=== PATIENT | male | born 1940 | race Caucasian/White ===

== ENCOUNTER → 2017-05-19 | Outpatient (CLI) | payer MEDICARE, OTHER ==
[~2017-05-19] MED LIST: ELIQUIS5 MG PO; EZET10 PO; FLUSAL1005 INH; FOLI1 PO; GABA300 PO; HYDR1TAB94 PO; Hydrocodone-Ap1 EA23 PO; LEVSOD75 PO; LOSA25 PO; TAMS.4ER PO; TIOT18 INH; ZOLP5; ZOLP5 PO
[2017-05-19 19:09] LABS: Alanine Aminotransfer (ALT/SGP 24 U/L (12-78); Albumin, Blood 3.3 g/dL (3.4-5.0); Albumin/Globulin Ratio 0.8 (0.8-1.8); Alk Phos 110 U/L (50-136); Anion Gap 7 mmol/L (6-16); Aspartate Aminotrans (AST/SGOT 22 U/L (12-37); Bilirubin, Total 0.5 mg/dL (0.1-1.0); Blood Urea Nitrogen 17 mg/dL (8-24); Bun/Creatinine Ratio 17.6 (12.0-20.0); CO2, Blood 26 mmol/L (21-32); Chloride, Blood 109 mmol/L (98-108); Creatinine, Blood 0.97 mg/dL (0.60-1.20); Globulin, Blood 3.9 g/dL (2.2-4.0); Glomerular Filtration Rate >60 (60-); Glucose, Blood 74 mg/dL (70-99); Potassium, Blood 5.7 mmol/L (3.5-5.5); Sodium, Blood 142 mmol/L (136-145); Total Protein, Blood 7.2 g/dL (6.4-8.2)
== END | disposition home or self-care (01) ==
LOC: LAB 14:00
PROVIDERS: Internal Medicine Hematology & Oncology
DX: C34.90 Malignant neoplasm of unspecified part of unspecified bronchus or lung (principal)
CPT/HCPCS: 80053

== ENCOUNTER → 2017-06-16 | Outpatient (CLI) | payer MEDICARE, OTHER ==
[2017-06-16 20:04] LABS: Alanine Aminotransfer (ALT/SGP 33 U/L (12-78); Albumin, Blood 3.4 g/dL (3.4-5.0); Albumin/Globulin Ratio 0.8 (0.8-1.8); Alk Phos 102 U/L (50-136); Anion Gap 11 mmol/L (6-16); Aspartate Aminotrans (AST/SGOT 27 U/L (12-37); Bilirubin, Total 0.4 mg/dL (0.1-1.0); Blood Urea Nitrogen 16 mg/dL (8-24); Bun/Creatinine Ratio 15.5 (12.0-20.0); CO2, Blood 24 mmol/L (21-32); Calcium, Blood 8.9 mg/dL (8.5-10.1); Chloride, Blood 107 mmol/L (98-108); Creatinine, Blood 1.03 mg/dL (0.60-1.20); Free Thyroxine 1.08 ng/dL (0.70-1.60); Globulin, Blood 4.2 g/dL (2.2-4.0); Glomerular Filtration Rate >60 (60-); Glucose, Blood 84 mg/dL (70-99); Potassium, Blood 5.6 mmol/L (3.5-5.5); Sodium, Blood 142 mmol/L (136-145); Total Protein, Blood 7.6 g/dL (6.4-8.2)
== END ==
LOC: LAB SHORT 11:00
PROVIDERS: Internal Medicine Hematology & Oncology
DX: C34.90 Malignant neoplasm of unspecified part of unspecified bronchus or lung (principal); D51.8 Other vitamin B12 deficiency anemias; R53.81 Other malaise; R53.83 Other fatigue
CPT/HCPCS: 80053; 82607; 82746; 84439; 84443

== ENCOUNTER 2017-10-25 05:52 | Day surgery (SDC) | payer MEDICARE, OTHER ==
[~2017-10-25] VITALS: Ht 175.3 cm; Wt 99.0 kg
[~2017-10-25 05:52] MED LIST changes: -HYDR1TAB94 PO
[2017-10-25] MEDS ORDERED: HYDR1TAB94 PO (06:33)
== END 2017-10-25 18:55 | disposition home or self-care (01) ==
LOC: MHTC 05:52 → ICUE 15:38 → MHTC 15:39 → ICUE 18:55
PROC: B42 Imaging, Lower Arteries, Computerized Tomography (CT Scan) (ICD-10-PCS; principal; 2017-10-25)
DX: I72.3 Aneurysm of iliac artery (principal); I70.221 Atherosclerosis of native arteries of extremities with rest pain, right leg; K55.1 Chronic vascular disorders of intestine
CPT/HCPCS: 36140; 75635; 75710; 75774; 85347; 96374; 99152; 99153; C1769; J1644; J2060; J2250; J2720; J3010; J7030; J7040; Q9967

== ENCOUNTER 2019-01-22 06:18 | Observation (INO) | payer OTHER, MEDICARE ==
[~2019-01-22] VITALS: Ht 175.3 cm; Wt 107.4 kg
[~2019-01-22 06:18] MED LIST changes: +HYDR1TAB94 PO
[2019-01-22 06:56] LABS: Source, Urine Voided
[2019-01-22 06:57] LABS: BASOPHILS ABSOLUTE AUTO 0.05 K/mm3 (0.00-0.23); BASOPHILS PERCENT AUTO 0 % (0-2); EOSINOPHILS ABSOLUTE AUTO 0.01 K/mm3 (0.00-0.68); EOSINOPHILS PERCENT AUTO 0 % (0-6); Hematocrit 44.1 % (37.0-53.0); Hemoglobin 14.7 g/dL (13.5-17.5); IMMATURE GRAN ABSOLUTE AUTO 0.24 K/mm3 (0.00-0.10); IMMATURE GRAN PERCENT AUTO 1 % (0-1); LYMPHOCYTES PERCENT AUTO 4 % (21-46); MONOCYTES ABSOLUTE AUTO 0.75 K/mm3 (0.16-1.47); MONOCYTES PERCENT AUTO 4 % (4-13); Mean Corpuscular HGB 31.6 pg (26.0-34.0); Mean Corpuscular HGB Conc 33.3 g/dL (31.5-36.5); Mean Corpuscular Volume 95 fL (80-100); Mean Platelet Volume 11.5 fL (9.1-12.4); NEUTROPHILS PERCENT AUTO 90 % (41-73); Platelet Count 156 K/mm3 (150-400); RDW Coefficient Variation 15.8 % (11.7-14.2); RDW Standard Deviation 55.2 fL (35.1-46.3); Red Blood Cell Count 4.65 M/mm3 (4.30-5.90); White Blood Cell Count 18.05 K/mm3 (4.00-11.30)
[2019-01-22 07:04] LABS: Bilirubin, Urine Neg (Neg); Blood, Urine 4+ (Neg); Glucose Qualitative, Urine Neg (Neg); Ketones, Urine 1+ (Neg); Leukocyte Esterase, Urine 3+ (Neg); Nitrite, Urine Neg (Neg); Protein, Urine 2+ (Neg); Urobilinogen, Urine NORM (Normal)
[2019-01-22 07:11] LABS: Appearance, Urine Clear (Clear); Color, Urine Yellow (P-Yellow)
[2019-01-22 07:13] LABS: Bacteria Many /hpf; Red Blood Cells, Urine 0-2 /hpf (0-2); Squamous Epithelial Cells Few /hpf (Few); White Blood Cells, Urine TNTC /hpf (0-5)
[2019-01-22 07:20] LABS: Albumin, Blood 2.6 g/dL (3.4-5.0); Albumin/Globulin Ratio 0.6 (0.8-1.8); Bilirubin, Total 0.6 mg/dL (0.1-1.0); Calcium, Blood 8.2 mg/dL (8.5-10.1); Creatinine, Blood 1.72 mg/dL (0.60-1.20); Globulin, Blood 4.5 g/dL (2.2-4.0); Magnesium, Blood 2.3 mg/dL (1.6-2.4); Potassium, Blood 4.3 mmol/L (3.5-5.5); Total Protein, Blood 7.1 g/dL (6.4-8.2)
[2019-01-22 07:23] LABS: Thyroid Stimulating Hormone 2.8 uIU/mL (0.360-4.800)
[2019-01-22 07:29] LABS: Free Thyroxine 1.37 ng/dL (0.70-1.60)
[2019-01-22] MEDS ORDERED: ATOR40TA PO (07:44)
[2019-01-22] MEDS ORDERED: CLOP75 PO (07:45)
[2019-01-22] MEDS ORDERED: SERT25 PO (07:46)
[2019-01-22] MEDS ORDERED: Motion Sickness25 M2 PO (12:08)
[2019-01-22] MEDS ORDERED: FLUTICASONE-SA1 EAC4 INH (12:10)
--- NOTE | 2019-01-22 13:00 | NUR ---
PT ARRIVED TO ROOM VIA STRETCHER AND ABLE TO MOVED HIMSELF TO BED WITH MOD ASSISTANCE WITH SLIDING. SOB WITH ANY ACTIVITY BUT DENIES FEELING SOB. NEPHEW CAME WITH HIM AND NEPHEWS . SETTLED IN TO BED AND MD IN IMMEDIATELY AFTER TO ASSESS HIM.
--- NOTE | 2019-01-22 18:35 | NUR ---
SHIFT SUMMARY PT STATING HE NEEDS TO URINATE FREQUENTLY BUT DENIES PAIN WITH URINATION. AT BEDSIDE THIS EVENING AND BROUGHT HIS DENTURES. PT UP TO CHAIR FOR SUPPER FROM P.T. FEELS BETTER THAN WHEN HE FIRST ARRIVED.
[2019-01-23 04:53] LABS: Hematocrit 45.7 % (37.0-53.0); Mean Corpuscular HGB 31.2 pg (26.0-34.0); Mean Corpuscular HGB Conc 32.8 g/dL (31.5-36.5); Mean Corpuscular Volume 95 fL (80-100); Mean Platelet Volume 11.5 fL (9.1-12.4); Platelet Count 173 K/mm3 (150-400); RDW Coefficient Variation 15.9 % (11.7-14.2); RDW Standard Deviation 55.4 fL (35.1-46.3); Red Blood Cell Count 4.81 M/mm3 (4.30-5.90)
--- NOTE | 2019-01-23 05:10 | NUR ---
THERAPEUTIC CASE MANAGER SUMMARY PT AAOX4 AND PLEASANT. STANDBY ASSIST WITH FWW. PT HAD SLIGHT TEMP AT START OF SHIFT. PT ALSO HAD BEEN FREQUENTLY VOIDING SMALL AMOUNTS OF URINE. PT TAKES FLOMAX AND HAS A HX OF RETENTION. BLADDER SCAN SHOWED 740 ML. SPOKE WITH CRISTOPHER FRANCES RADIO INTERFERENCE EXPERT REGARDING THIS, RECIEVED ORDER TO STRAIGHT CATH AND TO GIVE PT HIS NORMAL DOSE OF FLOMAX. ALSO RECIEVED ORDER FOR TYLENOL FOR FEVER. DURING ROUNDING LATER IN THE SHIFT PT WAS NOTED TO BE VERY DIAPHORETIC. PT WAS STILL AAOX4 AND DENIED NEW SYMPTOMS. PT ALSO HAD A LOW TEMPERATURE OF 93 DEGREES ORALLY. CHECKED CBG WHICH WAS 150'S. VSS AT THIS TIME. PT STATES THAT IT IS NORMAL FOR HIM TO SWEAT WHILE HE IS SLEEPING AND STATES HE OFTEN HAS TO CHANGE HIS LINENS WHEN HE WAKES UP. INCREASED TEMP IN ROOM AND GAVE PT WARM BLANKET. RECHECKED TEMP WAS 94.3 DEGREES. DID A FULL LINEN CHANGE AND CHANGED PT'S GOWN. MADE SURE PT WAS COMPLETELY DRY AND GAVE PT ADDITIONAL WARM BLANKETS. WILL RECHECK TEMPERATURE. PT DENIES PAIN, N/V, SOB. PT STATES HE'S FEELING A BIT BETTER THAN WHEN HE CAME IN. VSS, WILL CONTINUE TO MONITOR.
[2019-01-23 05:12] LABS: Alanine Aminotransfer (ALT/SGP 26 U/L (12-78); Albumin, Blood 2.5 g/dL (3.4-5.0); Albumin/Globulin Ratio 0.5 (0.8-1.8); Alk Phos 100 U/L (50-136); Anion Gap 4 mmol/L (6-16); Aspartate Aminotrans (AST/SGOT 41 U/L (12-37); Bilirubin, Total 0.3 mg/dL (0.1-1.0); Blood Urea Nitrogen 33 mg/dL (8-24); Bun/Creatinine Ratio 29.7 (12.0-20.0); CO2, Blood 23 mmol/L (21-32); Calcium, Blood 8.3 mg/dL (8.5-10.1); Chloride, Blood 115 mmol/L (98-108); Creatinine, Blood 1.11 mg/dL (0.60-1.20); Globulin, Blood 4.9 g/dL (2.2-4.0); Glomerular Filtration Rate >60 (60-); Glucose, Blood 169 mg/dL (70-99); Potassium, Blood 4.8 mmol/L (3.5-5.5); Sodium, Blood 142 mmol/L (136-145); Total Protein, Blood 7.4 g/dL (6.4-8.2)
[2019-01-23] MEDS ORDERED: LEVFLO500 PO (11:34)
[2019-01-23] MEDS ORDERED: Vsl#3 Capsule1 EACH PO (11:35)
--- NOTE | 2019-01-23 14:45 | NUR ---
DISCHARGE INSTRUCTIONS COMPLETED AND DISCUSSED WITH PT EXPRESSING UNDERSTANDING. SCRIPTS FAXED TO [facility]. TO [facility] VIA W/C AFTER HERE TO PICK HIM UP.
== END 2019-01-23 14:29 | disposition home or self-care (01) ==
LOC: ER 06:18 → ERHOLD 06:19 → MEDS 06:19 → ERHOLD 07:47 → ER 07:47 → MEDS 12:48 → ERHOLD 12:48 → ENPENDDIS 01-23 11:00 → MEDS 01-23 14:29
PROVIDERS: Emergency Medicine; ADMIT Internal Medicine
DX: A41.9 Sepsis, unspecified organism (principal); N39.0 Urinary tract infection, site not specified; N17.9 Acute kidney failure, unspecified; E86.0 Dehydration; I25.10 Atherosclerotic heart disease of native coronary artery without angina pectoris; F17.210 Nicotine dependence, cigarettes, uncomplicated; J44.1 Chronic obstructive pulmonary disease with (acute) exacerbation; Z79.02 Long term (current) use of antithrombotics/antiplatelets; Z79.899 Other long term (current) drug therapy; Z88.1 Allergy status to other antibiotic agents; Z88.8 Allergy status to other drugs, medicaments and biological substances
CPT/HCPCS: 36415; 51701; 70450; 71046; 80053; 81001; 82947; 83605; 83735; 83880; 84439; 84443; 85025; 85027; 87040; 87077; 87086; 87186; 93005; 93010; 94640; 94760; 96361; 96365; 96366; 97116; 97162; 97166; 97530; 99285-25; A9270; G0378; J0696; J1650; J2930; J7030; J7050

== ENCOUNTER 2020-06-10 20:13 | Emergency (ER) | payer OTHER, MEDICARE ==
[~2020-06-10] VITALS: Ht 175.3 cm; Wt 106.6 kg
[~2020-06-10 20:13] MED LIST changes: +ATOR40TA PO; +CLOP75 PO; +FLUTICASONE-SA1 EAC4 INH; +LEVFLO500 PO; +Motion Sickness25 M2 PO; +SERT25 PO; +Vsl#3 Capsule1 EACH PO
[2020-06-10 20:55] LABS: BASOPHILS ABSOLUTE AUTO 0.07 K/mm3 (0.00-0.23); BASOPHILS PERCENT AUTO 1 % (0-2); EOSINOPHILS ABSOLUTE AUTO 0.09 K/mm3 (0.00-0.68); EOSINOPHILS PERCENT AUTO 1 % (0-6); Hematocrit 54.6 % (37.0-53.0); Hemoglobin 17.6 g/dL (13.5-17.5); IMMATURE GRAN ABSOLUTE AUTO 0.05 K/mm3 (0.00-0.10); IMMATURE GRAN PERCENT AUTO 1 % (0-1); LYMPHOCYTES ABSOLUTE AUTO 2.02 K/mm3 (0.84-5.20); LYMPHOCYTES PERCENT AUTO 20 % (21-46); MONOCYTES PERCENT AUTO 6 % (4-13); Mean Corpuscular HGB 30.8 pg (26.0-34.0); Mean Corpuscular HGB Conc 32.2 g/dL (31.5-36.5); Mean Corpuscular Volume 96 fL (80-100); Mean Platelet Volume 11.1 fL (9.1-12.4); NEUTROPHILS PERCENT AUTO 72 % (41-73); Platelet Count 179 K/mm3 (150-400); RDW Standard Deviation 53.2 fL (35.1-46.3); Red Blood Cell Count 5.71 M/mm3 (4.30-5.90); White Blood Cell Count 10.13 K/mm3 (4.00-11.30)
[2020-06-10 21:15] LABS: Anion Gap 5 mmol/L (6-16); Blood Urea Nitrogen 13 mg/dL (8-24); CO2, Blood 25 mmol/L (21-32); Calcium, Blood 8.6 mg/dL (8.5-10.1); Chloride, Blood 109 mmol/L (98-108); Creatinine, Blood 0.93 mg/dL (0.60-1.20); Glomerular Filtration Rate >60 (60-); Glucose, Blood 114 mg/dL (70-99); Potassium, Blood 4.1 mmol/L (3.5-5.5); Sodium, Blood 139 mmol/L (136-145)
== END 2020-06-10 22:39 | disposition home or self-care (01) ==
LOC: ER 20:13
PROVIDERS: Student in an Organized Health Care Education/Training Program
DX: R42 Dizziness and giddiness (principal); R11.0 Nausea; I25.2 Old myocardial infarction; I25.10 Atherosclerotic heart disease of native coronary artery without angina pectoris; F17.200 Nicotine dependence, unspecified, uncomplicated; Z88.1 Allergy status to other antibiotic agents; Z88.8 Allergy status to other drugs, medicaments and biological substances; Z79.02 Long term (current) use of antithrombotics/antiplatelets; Z79.899 Other long term (current) drug therapy
CPT/HCPCS: 36415; 80048; 85025; 93005; 93010; 99284-25

== ENCOUNTER 2022-09-13 22:14 | Inpatient (IN) | payer OTHER ==
[~2022-09-13] VITALS: Ht 175.3 cm; Wt 76.2 kg
[~2022-09-13 22:14] MED LIST changes: +ASCO500 PO; +B12-FOLIC ACID1 EACH PO; +FLUT1DIS2; +FLUTICASONE-SA1 EAC9; +LEVOFLOXACIN500 M5; +VITAMIN D325 MC3 PO
[2022-09-13 22:50] LABS: BASOPHILS ABSOLUTE AUTO 0.04 K/mm3 (0.00-0.23); BASOPHILS PERCENT AUTO 0 % (0-2); EOSINOPHILS ABSOLUTE AUTO 0.01 K/mm3 (0.00-0.68); EOSINOPHILS PERCENT AUTO 0 % (0-6); Hematocrit 54.1 % (37.0-53.0); IMMATURE GRAN ABSOLUTE AUTO 0.03 K/mm3 (0.00-0.10); IMMATURE GRAN PERCENT AUTO 0 % (0-1); LYMPHOCYTES PERCENT AUTO 17 % (21-46); MONOCYTES ABSOLUTE AUTO 0.61 K/mm3 (0.16-1.47); MONOCYTES PERCENT AUTO 5 % (4-13); Mean Corpuscular HGB 31.6 pg (26.0-34.0); Mean Corpuscular HGB Conc 33.3 g/dL (31.5-36.5); Mean Corpuscular Volume 95 fL (80-100); Mean Platelet Volume 10.4 fL (9.1-12.4); NEUTROPHILS ABSOLUTE AUTO 8.92 K/mm3 (1.96-9.15); NEUTROPHILS PERCENT AUTO 77 % (41-73); Platelet Count 206 K/mm3 (150-400); RDW Coefficient Variation 14.4 % (11.7-14.2); RDW Standard Deviation 50.8 fL (35.1-46.3); Red Blood Cell Count 5.69 M/mm3 (4.30-5.90); White Blood Cell Count 11.61 K/mm3 (4.00-11.30)
[2022-09-13 23:03] LABS: Albumin, Blood 2.8 g/dL (3.4-5.0); Albumin/Globulin Ratio 0.7 (0.8-1.8); Bilirubin, Total 0.7 mg/dL (0.1-1.0); Bun/Creatinine Ratio 26.1 (12.0-20.0); Calcium, Blood 8.4 mg/dL (8.5-10.1); Creatinine, Blood 0.73 mg/dL (0.60-1.20); Globulin, Blood 4.2 g/dL (2.2-4.0); Magnesium, Blood 2.3 mg/dL (1.6-2.4); Potassium, Blood 3.5 mmol/L (3.5-5.5)
[2022-09-13 23:56] LABS: Adenovirus Not Detected (NOT DETECT); Bordetella pertussis Not Detected (NOT DETECT); Chlamydophila pneumoniae Not Detected (NOT DETECT); Coronavirus 229E Not Detected (NOT DETECT); Coronavirus HKU1 Not Detected (NOT DETECT); Coronavirus NL63 Not Detected (NOT DETECT); Coronavirus OC43 Not Detected (NOT DETECT); Human Metapneumovirus Not Detected (NOT DETECT); Human Rhinovirus/Enterovirus Not Detected (NOT DETECT); Influenza A/2009-H1 Not Detected (NOT DETECT); Influenza A/H1 Not Detected (NOT DETECT); Influenza A/H3 Not Detected (NOT DETECT); Influenza B Not Detected (NOT DETECT); Mycoplasma pneumoniae Not Detected (NOT DETECT); Parainfluenza Virus 1 Not Detected (NOT DETECT); Parainfluenza Virus 2 Not Detected (NOT DETECT); Parainfluenza Virus 3 Not Detected (NOT DETECT); Parainfluenza Virus 4 Not Detected (NOT DETECT); Respiratory Syncytial Virus Not Detected (NOT DETECT); SARS-Cov-2 (COVID-19), BioFire Not Detected (NOT DETECT)
[2022-09-14 03:13] VITALS: BP 149/70
--- NOTE | 2022-09-14 03:40 | NUR ---
PT ARRIVED ON UNIT AT 0250. DENIES PAIN, DISCOMFORT. SATTING WELL ON 15 L O2 VIA SIMPLE MASK. AOX4. PLEASANT AND COOPERATIVE WITH CARE. ADMISSION HISTORY AND ASSESSMENT COMPLETED. SCHEDULED MEDICATIONS TO BE ADMINISTERED ON SCHEDULE. DIET ORDER IS UNCLEAR DUE TO NO ORDER YET INPUT. 1 PERSON TRANSFER PER ED REPORT. IV IN RFA, SALINE LOCKED AT THIS TIME. DAUGHTER ACCOMPANIED PATIENT FROM ED BUT LEFT VERY QUICKLY AFTER ARRIVING ON FLOOR. PT USES CALL LIGHT APPROPRIATELY. BED LOCKED IN LOWEST POSITION. CALL LIGHT LEFT WITHIN REACH.
[2022-09-14 08:20] VITALS: BP 159/72
--- NOTE | 2022-09-14 11:30 | NUR ---
AM RN NOTE MR WILLAMS IS ON 12 L FACE MASK 02, CONTINUOUS PULSE OXIMETER ORDERED. DENIES CHEST PAIN. POOR APPETITE. UOP 150CC JULIANA URINE, STARTED ON IVF. EMESIS X 1 - GIVEN PO COMPAZINE AND HE SAID HE'S FEELING A LITTLE BETTER. BED LOW, CALL LIGHT IN REACH.
[2022-09-14 15:13] VITALS: BP 152/73
--- NOTE | 2022-09-14 15:38 | NUR ---
SHIFT SUMMARY MR WILLAMS SAID NAUSEA HAS GONE. POOR FOOD INTAKE BUT TOLERATING FLUIDS. BETTER UOP SINCE STARTING IVF. TIRED. PULSE OX 96% ON 8L OXIMISER SO DECREASED TO 7L. REPORT TO ERIC MUELLER RN. PT COMFORTABLE RESTING IN BED AT THIS TIME. BED LOW, CALL LIGHT IN REACH.
--- NOTE | 2022-09-14 17:11 | NUR ---
SHIFT SUMMARY RECEIVED REPORT ON PT AT 1530, ASSUMED CARE. NO ACUTE CHANGES NOTED, PT ALERT AND ORIENTED, CALLS APPROPRIATELY. PT AT 7L O2, NO SIGNS OF DISTRESS. PT X 1 ASSIST. NS INFUSING @ 125. WILL CONTINUE TO MONITOR. CALL LIGHT WITHIN REACH.
[2022-09-14 21:03] VITALS: BP 154/71
[2022-09-14 23:11] LABS: Source, Urine Voided
[2022-09-14 23:41] LABS: Bilirubin, Urine Neg (Neg); Blood, Urine Neg (Neg); Glucose Qualitative, Urine Neg (Neg); Ketones, Urine 3+ (Neg); Leukocyte Esterase, Urine Neg (Neg); Nitrite, Urine Neg (Neg); Protein, Urine 3+ (Neg); Urobilinogen, Urine NORM (Normal)
[2022-09-14 23:54] LABS: Appearance, Urine Clear (Clear); Color, Urine Yellow (P-Yellow)
[2022-09-14 23:55] LABS: Red Blood Cells, Urine 0-2 /hpf (0-2); White Blood Cells, Urine 0-2 /hpf (0-5)
[2022-09-14 23:56] LABS: Bacteria Few /hpf; Mucus Light (0-Heavy); Squamous Epithelial Cells Few /hpf (Few)
[2022-09-15 06:02] LABS: BASOPHILS ABSOLUTE AUTO 0.01 K/mm3 (0.00-0.23); BASOPHILS PERCENT AUTO 0 % (0-2); EOSINOPHILS PERCENT AUTO 0 % (0-6); Hematocrit 50.9 % (37.0-53.0); Hemoglobin 17.2 g/dL (13.5-17.5); IMMATURE GRAN ABSOLUTE AUTO 0.03 K/mm3 (0.00-0.10); IMMATURE GRAN PERCENT AUTO 0 % (0-1); LYMPHOCYTES ABSOLUTE AUTO 0.55 K/mm3 (0.84-5.20); LYMPHOCYTES PERCENT AUTO 6 % (21-46); MONOCYTES PERCENT AUTO 2 % (4-13); Mean Corpuscular HGB 32.3 pg (26.0-34.0); Mean Corpuscular HGB Conc 33.8 g/dL (31.5-36.5); Mean Corpuscular Volume 96 fL (80-100); Mean Platelet Volume 11.2 fL (9.1-12.4); NEUTROPHILS ABSOLUTE AUTO 8.78 K/mm3 (1.96-9.15); NEUTROPHILS PERCENT AUTO 92 % (41-73); Platelet Count 208 K/mm3 (150-400); RDW Coefficient Variation 14.5 % (11.7-14.2); RDW Standard Deviation 50.5 fL (35.1-46.3); Red Blood Cell Count 5.32 M/mm3 (4.30-5.90); White Blood Cell Count 9.57 K/mm3 (4.00-11.30)
--- NOTE | 2022-09-15 06:32 | NUR ---
GRAIN SPOUTER SUMMARY PT A/OX4. WITH SOME CONFUSION AND FORGETUFLLNESS. PT ON 6L W/MASK T/O THE NIGHT. PT OCCASIONALLY PULLING MASK OFF AND HAVING SHARP DESATS DOWN INTO THE LOW 70'S. PT C/O N&V AT THE BEGINNING OF SHIFT AND INTERMITTANTLY T/O THE NIGHT. 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 CALL TO PARTS PRODUCT ANALYST; NEW ORDER FOR IV ZOFRAN, FLUTTER THERAPY, AND VANCYO CONSULT/VANCO PER PHARMACY. PT RCVD FIRST DOSE OF VANCYO AND TOLERATED WELL. PT EXPRESSING DESIRE TO SPEAK TO THE DR AND "GET OUTTA HERE" TALKED WITH PT ABOUT CURRENT ILLNESS AND NEED FOR MEDICAL INTERVENTION. PT ABLE TO MAKE NEEDS KNOWN; CALL LIGHT ACCESSIBLE.
[2022-09-15 06:49] LABS: Albumin, Blood 2.5 g/dL (3.4-5.0); Albumin/Globulin Ratio 0.7 (0.8-1.8); Bilirubin, Total 0.7 mg/dL (0.1-1.0); Bun/Creatinine Ratio 27.7 (12.0-20.0); Calcium, Blood 7.9 mg/dL (8.5-10.1); Creatinine, Blood 0.79 mg/dL (0.60-1.20); Globulin, Blood 3.8 g/dL (2.2-4.0); Magnesium, Blood 2.4 mg/dL (1.6-2.4); Potassium, Blood 3.5 mmol/L (3.5-5.5); Total Protein, Blood 6.3 g/dL (6.4-8.2)
[2022-09-15 09:13] VITALS: BP 168/77
--- NOTE | 2022-09-15 10:17 | NUR ---
MD CALL MR WILLAMS TOOK PO PHENERGAN THIS AM BEFORE BREAKFAST AND MEDS, BUT DID VOMIT THIS AM. DID NOT TOLERATE BREAKFAST. DR SU CALLED TO NOTIFY - AZYTHROMYACIN DISCONTINUED AND LORAZEPAM ORDERED. OK TO GIVE IV ZOFRAN.
[2022-09-15 12:09] VITALS: BP 148/67
--- NOTE | 2022-09-15 16:46 | NUR ---
SHIFT SUMMARY MR WILLAMS HAS POOR INTAKE TODAY, TOLERATING WATER PO BUT NOT FOOD. PO PHENERGAN AND IV ZOFRAN DID NOT HELP. GIVEN LOW DOSE ATIVAN IV AND HE HAS BEEN RESTING. HE HAD TELEPHONE CALL WITH GI PHYSICIAN WITH DAUGHTER PRESENT. DAUGHTER SAID THAT HE SHOULD BE OFF ELOQUIS FOR 5 DAYS POST COLONOSCOPY THEN GO BACK ON IT, THAT THE SCHEDULED FACIAL SURGERY ON 09/26 WILL NOT BE DONE AND THAT HE WILL HAVE BOWEL RESECTION SCHEDULED AFTER HE IS RELEASED FROM [facility]. ON 8L OXIMISER WITH CONTINUOUS PULSE OX 90-91%. UOP LOW VOLUME, DARKER IN COLOR. BED LOW, CALL LIGHT IN REACH.
--- NOTE | 2022-09-15 18:22 | NUR ---
ADDN MESSAGE LEFT FOR BRAZING MACHINE OPERATOR AUTOMATIC REGARDING POOR PO INTAKE.
[2022-09-15 19:14] VITALS: BP 156/69
[2022-09-16 03:10] VITALS: BP 162/68
[2022-09-16 03:49] VITALS: BP 149/69
[2022-09-16 05:32] LABS: BASOPHILS ABSOLUTE AUTO 0.02 K/mm3 (0.00-0.23); BASOPHILS PERCENT AUTO 0 % (0-2); EOSINOPHILS PERCENT AUTO 0 % (0-6); Hematocrit 49.8 % (37.0-53.0); Hemoglobin 16.6 g/dL (13.5-17.5); IMMATURE GRAN ABSOLUTE AUTO 0.05 K/mm3 (0.00-0.10); IMMATURE GRAN PERCENT AUTO 0 % (0-1); LYMPHOCYTES ABSOLUTE AUTO 0.53 K/mm3 (0.84-5.20); LYMPHOCYTES PERCENT AUTO 4 % (21-46); MONOCYTES ABSOLUTE AUTO 0.43 K/mm3 (0.16-1.47); MONOCYTES PERCENT AUTO 3 % (4-13); Mean Corpuscular HGB 31.9 pg (26.0-34.0); Mean Corpuscular HGB Conc 33.3 g/dL (31.5-36.5); Mean Corpuscular Volume 96 fL (80-100); Mean Platelet Volume 10.6 fL (9.1-12.4); NEUTROPHILS ABSOLUTE AUTO 13.46 K/mm3 (1.96-9.15); NEUTROPHILS PERCENT AUTO 93 % (41-73); Platelet Count 200 K/mm3 (150-400); RDW Coefficient Variation 14.2 % (11.7-14.2); RDW Standard Deviation 50.7 fL (35.1-46.3); White Blood Cell Count 14.49 K/mm3 (4.00-11.30)
--- NOTE | 2022-09-16 05:35 | NUR ---
PATIENT REMAINS ALERT AND ORIENTED X4, STAND BY ASSIST TO MANAGE LINES, SOME INCONTINENCE, GOOD U/O, IV REPLACED AND INFUSING. SOME EDEMA NOTED TO BUE AND BLE, LUNGS ARE COARSE IN ALL AREAS WITH A WET WEAK PRODUCTIVE COUGH. HTN, OTHERWISE VSS. WILL CONT TO MONITOR.
[2022-09-16 06:03] LABS: Calcium, Blood 7.6 mg/dL (8.5-10.1); Creatinine, Blood 0.83 mg/dL (0.60-1.20); Potassium, Blood 3.8 mmol/L (3.5-5.5)
[2022-09-16 07:51] VITALS: BP 170/74
[2022-09-16 16:59] VITALS: BP 157/66
--- NOTE | 2022-09-16 17:29 | NUR ---
SHIFT SUMMARY PTN WITH ACUTE RESP FAILURE, HYPOXIA AND COPD EXEC, WITH HX CA. NAUSEA FIRST OF SHIFT, TREATED PER EMAR, RESTING REST OF DAY. NOT INTERESTED IN SITTING UP IN CHAIR. O2 DROPS DOWN INTO 80'S IF NOT ON CORRECTLY, PREFERS MASK. SATS WITH MASK AND AT REST 93-94% FOR SHIFT, 11L O2. PTN REPORTED ONCOLOGIST WANTED TO HOLD PLAVIX, ORDER D/C'D. REGLAN ORDERED STARTING [address] OF CHEST, ABD, AND PELVIS DONE TODAY. CONTINIUE PLAN OF CARE.
[2022-09-16 19:17] VITALS: BP 161/65
[2022-09-16 21:30] VITALS: BP 151/65
[2022-09-17 04:39] VITALS: BP 151/66
--- NOTE | 2022-09-17 05:15 | NUR ---
PATIENT REMIANS ALERT AND ORIENTED X4, COOPERATIVE WITH CARE. LUNGS SOUNDS WERE WORSENING, VERY WET, COARSE, WITH PRODUCTIVE WEAK COUGH. PER CT NOTE, PLURAL EFFUSIONS AND FLUID VOLUME OVERLOAD PRESENT. WITH MD APPROVAL, IV FLUIDS SALINE LOCKED FOR THE REMAINDER OF THE NIGHT UNTILL REASSESSED. MULTIPLE ATTEMPTS WERE MADE TO TITRATE O2 LOWER THAN 10L FACEMASK, HOWEVER PATIENT DESATURATED INTO MID 80'S AT 9L. SOME HYPERTENTION. GOOD U/O, POST VOID BLADDER SCAN WAS 120. NO PAIN REPORTED. SOME N/V TREATED PER JUL. NO OTHER ISSUES TO REPORT.
[2022-09-17 06:47] LABS: BASOPHILS ABSOLUTE AUTO 0.02 K/mm3 (0.00-0.23); BASOPHILS PERCENT AUTO 0 % (0-2); EOSINOPHILS PERCENT AUTO 0 % (0-6); Hematocrit 51.8 % (37.0-53.0); Hemoglobin 17.1 g/dL (13.5-17.5); IMMATURE GRAN ABSOLUTE AUTO 0.06 K/mm3 (0.00-0.10); IMMATURE GRAN PERCENT AUTO 0 % (0-1); LYMPHOCYTES ABSOLUTE AUTO 0.91 K/mm3 (0.84-5.20); LYMPHOCYTES PERCENT AUTO 6 % (21-46); MONOCYTES ABSOLUTE AUTO 0.87 K/mm3 (0.16-1.47); MONOCYTES PERCENT AUTO 6 % (4-13); Mean Corpuscular HGB 31.8 pg (26.0-34.0); Mean Corpuscular Volume 97 fL (80-100); Mean Platelet Volume 10.5 fL (9.1-12.4); NEUTROPHILS ABSOLUTE AUTO 13.69 K/mm3 (1.96-9.15); NEUTROPHILS PERCENT AUTO 88 % (41-73); Platelet Count 184 K/mm3 (150-400); RDW Coefficient Variation 14.2 % (11.7-14.2); Red Blood Cell Count 5.37 M/mm3 (4.30-5.90); White Blood Cell Count 15.55 K/mm3 (4.00-11.30)
[2022-09-17 07:13] LABS: Calcium, Blood 8.1 mg/dL (8.5-10.1); Creatinine, Blood 0.86 mg/dL (0.60-1.20); Potassium, Blood 3.7 mmol/L (3.5-5.5)
[2022-09-17 07:17] VITALS: BP 134/61
[2022-09-17 15:48] VITALS: BP 124/60
--- NOTE | 2022-09-17 16:51 | NUR ---
SHIFT SUMMARY PATIENT WITH COARSE LUNGS TODAY/RUB. DESATURATES TO 83-88% ON 10L FACE MASK WITH EXERTION, MAINTAINS 90% WITH 11L W/EXERTION. 91-92% ON 10L VIA FACE MASK. PATIENT DENIES ANY DISCOMFORT TODAY. TOLERATED UP IN CHAIR FOR 2 HOURS THIS AFTERNOON. PATIENT USES CALL LIGHT APPROPRIATELY AND AWARE OF LIMITATIONS. WILL CONTINUE TO MONITOR.
[2022-09-17 20:39] VITALS: BP 125/59
[2022-09-18] VITALS (17 sets, daily range): BP systolic 89–132; BP diastolic 50–68
[2022-09-18 05:22] LABS: BASOPHILS ABSOLUTE AUTO 0.03 K/mm3 (0.00-0.23); BASOPHILS PERCENT AUTO 0 % (0-2); EOSINOPHILS ABSOLUTE AUTO 0.04 K/mm3 (0.00-0.68); EOSINOPHILS PERCENT AUTO 0 % (0-6); Hematocrit 50.1 % (37.0-53.0); Hemoglobin 16.5 g/dL (13.5-17.5); IMMATURE GRAN ABSOLUTE AUTO 0.07 K/mm3 (0.00-0.10); IMMATURE GRAN PERCENT AUTO 0 % (0-1); LYMPHOCYTES ABSOLUTE AUTO 0.77 K/mm3 (0.84-5.20); LYMPHOCYTES PERCENT AUTO 5 % (21-46); MONOCYTES ABSOLUTE AUTO 0.92 K/mm3 (0.16-1.47); MONOCYTES PERCENT AUTO 6 % (4-13); Mean Corpuscular HGB 31.5 pg (26.0-34.0); Mean Corpuscular HGB Conc 32.9 g/dL (31.5-36.5); Mean Corpuscular Volume 96 fL (80-100); NEUTROPHILS ABSOLUTE AUTO 14.13 K/mm3 (1.96-9.15); NEUTROPHILS PERCENT AUTO 89 % (41-73); Platelet Count 146 K/mm3 (150-400); RDW Coefficient Variation 14.2 % (11.7-14.2); RDW Standard Deviation 50.4 fL (35.1-46.3); Red Blood Cell Count 5.23 M/mm3 (4.30-5.90); White Blood Cell Count 15.96 K/mm3 (4.00-11.30)
[2022-09-18 05:45] LABS: Bun/Creatinine Ratio 38.1 (12.0-20.0); Calcium, Blood 8.3 mg/dL (8.5-10.1); Creatinine, Blood 0.76 mg/dL (0.60-1.20); Potassium, Blood 3.7 mmol/L (3.5-5.5)
--- NOTE | 2022-09-18 06:16 | NUR ---
PATIENTS R MIRAMONTES WOUND HAS BEEN BLEEDING THIS SHIFT, AND IS POOLING IN HIS THROAT, LUNGS ARE VERY WET SOUNDING STILL WITH A WEAK PRODUCTIVE FROTHY COUGH, AND OXYGEN REQUIREMENT CONTINUE TO GO UP THE NIGH PROGRESSED, ENDING THE SHIFT ON AIRVO 55L AT 80%, HOSPITALIST MADE AWARE. PATIENT IS NOT NAUSEOUS FEELING BUT CONTINUES TO VOMIT CLEAR FROTHY LIQUID IN SMALL AMOUNTS. WILL CONT TO MONIOR.
--- NOTE | 2022-09-18 11:43 | NUR ---
ASSUMED CARE: ASSUMED CARE OF PT APPROX 10:30. RECEIVED REPORT FROM MEDICAL RN, ERIC. PT ALERT AND ORIENTED X4 ON ARRIVAL TO PCU, BUT VISIBLY WEAK WHEN SPEAKING. VERY WET COUGH WITH COARSE LUNG SOUNDS. NO SPUTUM PRODUCTION PT ON AIRVO AT 55L. RT AMADOR TO BEDSIDE TO ASSIST. O2 SATS 88-93% ON ARRIVAL WITH CURRENT SATS 94%. HR 80'S, SBP 88. SBP HAS SINCE INCREASED TO 114. PT DENIES CP/PRESSURE. DENIES N/V. WOUND ON RIGHT SIDE OF NOSE REDRESSED. RASH NOTED IN BRENDA AREA, BARRIER CREAM APPLIED. SEE PHOTOS IN CHART. ATTENDS CHANGED, 1 INCONTINENT VOID ON ARRIVAL. PT UNSURE OF MOST RECENT BM. BOWEL SOUNDS HYPOACTIVE, DENIES TENDERNESS ON PALPATION. IV IN R FOREARM FLUSHED WITH 10CC NS. DRAWS BACK BLOOD. RADIAL AND PEDAL PULSES STRONG ON PALPATION. CALL LIGHT WITHIN PT'S REACH. NO FURTHER NEEDS AT THIS TIME.
--- NOTE | 2022-09-18 17:13 | NUR ---
SHIFT SUMMARY: PT A&OX4 BUT LETHARGIC SINCE ARRIVAL TO PCU THIS AM. PT ON AIRVO AT 55L WITH SPO2 MOSTLY 90-94%. NOTICEABLE SOB WITH TALKING. DARK, FROTHY SPUTUM NOTED. SBP MOSTLY 110-120'S. PT DENIES CP/PRESSURE. REGLAN ADMINISTERED PER EMAR FOR NAUSEA, NO VOMITING. PT ABLE TO VOID WITH URINAL AND STAFF ASSISTANCE. R FOREARM IV SALINE LOCKED. FAMILY AT BEDSIDE THIS PM. PT MET WITH PALLIATIVE CARE THIS SHIFT, ELECTED TO REMAIN A FULL CODE AT THIS TIME. PHYSICAL THERAPY ATTEMPTED TO SEE PT, WILL DEFER CONSULT TO 09/19 RELATED TO INCREASED OXYGEN DEMAND TODAY. NEW ORDERS PLACED FOR PT TO HAVE FULL LIQUID DIET. PT ABLE TO MAKE NEEDS KNOWN. CURRENTLY RESTING IN BED. CALL LIGHT WITHIN REACH. NO FURTHER NEEDS AT THIS TIME.
--- NOTE | 2022-09-18 18:21 | NUR ---
Met with pt to review his needs. States he is starting to feel better. He was concerned his daughter did not know where he was at.Called daughter line was busy she came in shortly after. He has stopped seeing dr freire they had a falling out. He is seeing oncolgy in [place]. He has had nine treatments of he states chemo. He is about a week out form last treatment. He feels he is chemo sick. He wants us to update his oncologist. advised wi will assist with plan of care. helped him with lunch and will speak with dietary on meanl plan he is struggling with food. Will find out prognosis.
[2022-09-19] VITALS (27 sets, daily range): BP systolic 87–151; BP diastolic 49–92
--- NOTE | 2022-09-19 03:30 | NUR ---
ASSUMED CARE PATIENT ARRIVED FROM PCU ALERT ON NON REBREATHER. NO FAMILY AT BEDSIDE. PATIENT BREATHING IS LABORED PLACED ON AIRVO PER RT. COPIOUS AMOUNT OF BROWN EMESIS SUCTION OUT OF BACK OF MOUTH/THROAT. DR. ABERNATHY AT BEDSIDE.
--- NOTE | 2022-09-19 03:35 | NUR ---
UPDATE THIS RN INTO ROOM AFTER BEING NOTIFIED BY [employer] THAT PATIENT WAS IN SVT AT 150s. UPON ENTERING PATIENT'S ROOM, IT WAS FOUND THAT PATIENT WAS IN BED WITH EYES OPEN, WITH AIRVO IN PLACE WELL SUCTION JAUNKER IN HAND. NOTED PATIENT HAD SMALL AMOUNT OF BROWN LIQUID ON GOWN AND IN SUCTION TUBING. THIS RN CALLED ADDITIONAL CLAM DREDGER TO BEDSIDE WELL ICU [employer]. EKG PERFORMED SOON ICU [employer] INTO ROOM. CRASH CART AT BEDSIDE. THIS RN CALLED HOSPITALIST AND WAS GIVEN ORDERS FOR ADENOSINE PUSH x2. ICU CHARGE GAVE FIRST DOSE OF 6MG ADENOSINE AT 0322 WITH NO CHANGES TO RATE/RHYTHM, SECOND DOSE GIVEN AT 0324. PATIENT CAROLINA'D DOWN INTO 30s ABOUT A MINUTE AFTER SECOND DOSE WAS GIVEN. DR. ABERNATHY AT BEDSIDE, DECISION TO TRANSFER PATIENT TO ICU. PATIENT TRANSFERRED TO ICU 08 WITH ASSISTANCE FROM ICU AND RT. PATIENT TRANSFERRED WITH ALL BELONGINGS, ICU [employer] TO CALL FAMILY.
[2022-09-19 04:00] LABS: BASOPHILS ABSOLUTE AUTO 0.01 K/mm3 (0.00-0.23); BASOPHILS PERCENT AUTO 0 % (0-2); EOSINOPHILS ABSOLUTE AUTO 0.07 K/mm3 (0.00-0.68); EOSINOPHILS PERCENT AUTO 1 % (0-6); Hematocrit 37.5 % (37.0-53.0); Hemoglobin 12.4 g/dL (13.5-17.5); IMMATURE GRAN ABSOLUTE AUTO 0.05 K/mm3 (0.00-0.10); IMMATURE GRAN PERCENT AUTO 0 % (0-1); LYMPHOCYTES ABSOLUTE AUTO 1.35 K/mm3 (0.84-5.20); LYMPHOCYTES PERCENT AUTO 11 % (21-46); MONOCYTES ABSOLUTE AUTO 0.59 K/mm3 (0.16-1.47); MONOCYTES PERCENT AUTO 5 % (4-13); Mean Corpuscular HGB 32.7 pg (26.0-34.0); Mean Corpuscular HGB Conc 33.1 g/dL (31.5-36.5); Mean Corpuscular Volume 99 fL (80-100); Mean Platelet Volume 12.2 fL (9.1-12.4); NEUTROPHILS ABSOLUTE AUTO 10.58 K/mm3 (1.96-9.15); NEUTROPHILS PERCENT AUTO 84 % (41-73); Platelet Count 115 K/mm3 (150-400); RDW Coefficient Variation 14.8 % (11.7-14.2); RDW Standard Deviation 52.7 fL (35.1-46.3); Red Blood Cell Count 3.79 M/mm3 (4.30-5.90); White Blood Cell Count 12.65 K/mm3 (4.00-11.30)
--- NOTE | 2022-09-19 04:29 | NUR ---
UPON ROUNDING I ENTERED PT'S PCU ROOM WITH RN AND STAFF ATTEMPTING TO TREAT PT FOR A CRITICAL HEART ISSUE. PT APPEARED TO HAVE ASPIRATED. I SXN'D PT'S MOUTH, RETURN WAS MINIMAL. PT DESATTED TO 85% AND REMAINED THERE. PT WAS MAXED ON HIS AIRVO SETTINGS SO I REMOVED AIRVO AND PUT PT ON NRB IN ORDER TO TRANSPORT TO ICU. AFTER ARRIVAL IN ICU ROOM, PT SAT REMAINED BELOW 87% SO, WHILE KEEPING PT ON AIRVO, I PUT NRB BACK ON PT AT 15L. EVENTUALLY PT SATS INCREASED TO 94% AND STEADY. NRB WAS REMOVED BUT AIRVO REMAINED. PT SAT REMAINED AT 94% WHILE ONLY ON AIRVO. DR ABERNATHY AT BEDSIDE READY FOR INTUBATION HOWEVER AFTER CONTACTING FAMILY IT WAS DECIDED TO WAIT UNTIL DAUGHTER AND HER SPOKE WITH PT TO DECIDE ON NEXT COURSE OF ACTION. PT IS CURRENTLY AIRVO AT 55L AND 85% WITH SAT STEADY AT 93%. PT IS COHERENT AND DOES NOT APPEAR TO BE HAVING DIFFICULY BREATHING AT THIS MOMENT. DECISION TO INTUBATE OR NOT IS STILL PENDING AT THIS MOMENT.
--- NOTE | 2022-09-19 05:01 | NUR ---
SHIFT SUMMARY: PT A&OX4 AT BEGINNING OF SHIFT. PT WANTING TO AMBULATE TO BATHROOM FROM BED. PT INFORMED THIS WAS NOT SAFE DUE TO OXYGEN NEED. PT RELUCTANTLY COMPLIES TO SIT AT BEDSIDE AND VOID CLEAR, YELLOW URINE. PT O2 SATS > 92% ON AIRVO 50LPM AT 88%. PT HAD NO COMPLAINTS THROUGHOUT SHIFT. SLEEPING COMFORTABLY IN BED WITH EYES CLOSED. O2 SATS HAS CONTINUED TO REMAIN > 92%. HR WAS SR WITHOUT COMPLAINTS OF CHEST PAIN. THIS A.M. PT CONVERTER TO SVT'S, SEE NOTE BY GOPI FAY RN. PT TRANSFERED TO ICU. DR. MONREAL INFROMED.
[2022-09-19 06:29] LABS: Albumin, Blood 1.9 g/dL (3.4-5.0); Albumin/Globulin Ratio 0.6 (0.8-1.8); Bilirubin, Total 0.9 mg/dL (0.1-1.0); Bun/Creatinine Ratio 46.1 (12.0-20.0); Calcium, Blood 8.2 mg/dL (8.5-10.1); Creatinine, Blood 0.8 mg/dL (0.60-1.20); Globulin, Blood 3.3 g/dL (2.2-4.0); Potassium, Blood 3.7 mmol/L (3.5-5.5); Total Protein, Blood 5.2 g/dL (6.4-8.2)
--- NOTE | 2022-09-19 08:49 | NUR ---
CARE OF PT ASSUMED AT 0700. PT AWAKE AND ORIENTED X3, REQUESTING WATER. PT NPO AT THIS TIME FOR POSSIBLE ASP PNEUMONIA. PT HAS STRONG PRODUCTIVE COUGH. PT SATS 94% ON AIRVO 55L/86%. COARSE RHONCHI T/O UPPER LOBES. DR THOMPSON AT BEDSIDE DURING ASSESSMENT. SPEECH/SWALLOW ORDERED. PT VOMITED BROWN EMESIS LAST NIGHT; LOVENOX HELD FOR NOW. LEFT ARM SIGNIFICANTLY LARGER THAN RIGHT W EDEMA; VENOUS STUDY ORDERED. IVF TO BE STARTED IF PT TO REMAIN NPO AFTER SWALLOW EVAL.
--- NOTE | 2022-09-19 10:59 | NUR ---
SATS DROPPING 87-88%. PT DENIES FEELING ANY MORE SOB. RT CALLED AND IS AT BEDSIDE. DR THOMPSON CALLED TO GIVE UPDATE, CONSULT FOR CRITICAL CARE ORDERED, DR BUTTERFIELD NOTIFIED. PT TO REMAIN NPO FOR NOW D/T RESP STATUS.
--- NOTE | 2022-09-19 15:46 | NUR ---
DR BUTTERFIELD IN TO SEE PT. DR BUTTERFIELD SPOKE EXTENSIVELY WITH PT AND PT'S DAUGHTER. NGT TO SUCTION ORDERED. LEFT NARE NUMBED WITH LIDOCAINE JELLY. PT TOLERATED PROCEDURE FAIRLY WELL, SATS DID DROP TO HIGH 70'S FOR SEVERAL MINUTES AFTER PLACEMENT. RT AT BEDSIDE, AIRVO INCREASED FROM 45L TO 50L. FI02 REMAINS AT 85%. 16F NGT PASSED TO STOMACH ON 1ST ATTEMPT AND PLACED TO SUCTION, 2300 CC BROWN OUTPUT WITHIN 2MIN. SUCTION THEN PLACED TO LIS. OKAY FOR PT TO HAVE SMALL SIPS OF WATER PER DR BUTTERFIELD. DAUGHTER AT BEDSIDE NOW.
--- NOTE | 2022-09-19 16:35 | NUR ---
DR BUTTERFIELD CALLED REGARDING LOW U/O. LASIX 20MG IVP ORDERED.
--- NOTE | 2022-09-19 19:15 | NUR ---
ASSUMED CARE PATIENT ALERT IN BED, ON AIRVO, IN NO APPARENT DISTRESS. DAUGHTER AT BEDSIDE.
--- NOTE | 2022-09-19 21:03 | NUR ---
SPOKE W/ DR. LORA PATIENT REQUESTING MEDICATION FOR INDIGESTION AND SLEEP. SEE ORDERS
[2022-09-20] VITALS (23 sets, daily range): BP systolic 96–140; BP diastolic 53–69
--- NOTE | 2022-09-20 06:00 | NUR ---
SHIFT SUMMARY PATIENT ALERT & ORIENTED, TOLERATING AIRVO, SATS STABLE >92% NGT IN PLACE WITH COPIOUS AMOUNT OF OUTPUT. ADEQUATE URINE OUTPUT.
[2022-09-20 06:21] LABS: BASOPHILS ABSOLUTE AUTO 0.02 K/mm3 (0.00-0.23); BASOPHILS PERCENT AUTO 0 % (0-2); EOSINOPHILS ABSOLUTE AUTO 0.08 K/mm3 (0.00-0.68); EOSINOPHILS PERCENT AUTO 1 % (0-6); Hemoglobin 14.6 g/dL (13.5-17.5); IMMATURE GRAN ABSOLUTE AUTO 0.06 K/mm3 (0.00-0.10); IMMATURE GRAN PERCENT AUTO 1 % (0-1); LYMPHOCYTES ABSOLUTE AUTO 0.74 K/mm3 (0.84-5.20); LYMPHOCYTES PERCENT AUTO 6 % (21-46); MONOCYTES ABSOLUTE AUTO 0.72 K/mm3 (0.16-1.47); MONOCYTES PERCENT AUTO 6 % (4-13); Mean Corpuscular HGB 31.7 pg (26.0-34.0); Mean Corpuscular HGB Conc 33.2 g/dL (31.5-36.5); Mean Corpuscular Volume 95 fL (80-100); Mean Platelet Volume 11.1 fL (9.1-12.4); NEUTROPHILS PERCENT AUTO 88 % (41-73); Platelet Count 166 K/mm3 (150-400); RDW Coefficient Variation 13.9 % (11.7-14.2); RDW Standard Deviation 49.5 fL (35.1-46.3); Red Blood Cell Count 4.61 M/mm3 (4.30-5.90); White Blood Cell Count 13.02 K/mm3 (4.00-11.30)
[2022-09-20 06:41] LABS: Calcium, Blood 8.4 mg/dL (8.5-10.1); Creatinine, Blood 0.87 mg/dL (0.60-1.20); Potassium, Blood 3.3 mmol/L (3.5-5.5)
--- NOTE | 2022-09-20 08:50 | NUR ---
CARE OF PT ASSUMED AT 0700. PT SLEEPING, AWAKENS TO VOICE AND REQUEST WATER. PT DENIES C/O PAIN, DROWSY THIS AM, FALLS ASLEEP DURING SOME QUESTIONS. ORIENTED, AND ABLE TO FOLLOW COMMANDS. O2 >90% ON AIRVO AT 45L/75%. COARSE RHONCHI T/O, PT HAS STRONG PRODUCTIVE COUGH. NGT TO LIS, PUTTING OUT DARK BROWN GASTRIC CONTENT. PT DENIES PAIN/ABD PAIN, NAUSEA. DENIES SOB, BUT HAS DYSPNEA W EXERTION. PICC LINE TO BE PLACED TODAY FOR IV NUTRITION.
--- NOTE | 2022-09-20 09:44 | NUR ---
DR BUTTERFIELD AND DR THOMPSON IN TO SEE PT, FULL UPDATE GIVEN. TPN TO BE ORDERED.
--- NOTE | 2022-09-20 13:28 | NUR ---
PICC PLACED TO ELVIRA, PT TOLERATED PICC PLACEMENT WELL. XRAY ORDERED AND TAKEN. PT GIVEN COMPLETE BED BATH; TOLERATED THAT WELL. PT GIVEN OCC SMALL SIPS OF WATER PER DR BUTTERFIELD. COLON MASS PATHOLOGY REPORT OBTAINED PER DR BUTTERFIELD REQUEST AND GIVEN TO HIM. REPORT ON CHART. TPN ORDERED.
--- NOTE | 2022-09-20 17:55 | NUR ---
PT C/O PAIN 5/10 TO THROAT AND TOWARDS BACK OF NOSE. FENTANYL ORDERED, 25MCG GIVEN W GOOD RESULTS. PT REMAINS ON AIRVO AT 45L/75%, SATS >90%. >1L OUT THIS SHIFT FROM NGT TUBE; DARK BROWN.
--- NOTE | 2022-09-20 20:00 | NUR ---
ASSUMED CARE OF PT AT 1915. REPORT RECEIVED AT BEDSIDE. PT PRESENTS IN BED. DAUGHTER IN ROOM. PT WATCHING A BASEBALL GAME ON HIS LAPTOP COMPUTER. PT SOMEWHAT FLAT AFFECT. IS PLEASANT AND COOPERATIVE WITH CARE AND ASSESSMENT. WILL REVEIW CHART AND PLAN OF CARE FOR THIS PT.
--- NOTE | 2022-09-20 23:18 | NUR ---
HAVE MEDICATED PT TWICE WITH 25 MCG'S FENTANYL TWICE. PT STATES THAT HE RECEIVES GOOD PAIN RELIEF WITH THIS DOSE. PT HAS VOIDED SMALL AMOUNTS 75 ML AT A TIME
[2022-09-21] VITALS (24 sets, daily range): BP systolic 107–148; BP diastolic 46–66
[2022-09-21 06:38] LABS: BASOPHILS ABSOLUTE AUTO 0.02 K/mm3 (0.00-0.23); BASOPHILS PERCENT AUTO 0 % (0-2); EOSINOPHILS ABSOLUTE AUTO 0.07 K/mm3 (0.00-0.68); EOSINOPHILS PERCENT AUTO 1 % (0-6); Hematocrit 45.3 % (37.0-53.0); Hemoglobin 14.5 g/dL (13.5-17.5); IMMATURE GRAN ABSOLUTE AUTO 0.05 K/mm3 (0.00-0.10); IMMATURE GRAN PERCENT AUTO 0 % (0-1); LYMPHOCYTES ABSOLUTE AUTO 0.69 K/mm3 (0.84-5.20); LYMPHOCYTES PERCENT AUTO 6 % (21-46); MONOCYTES ABSOLUTE AUTO 0.82 K/mm3 (0.16-1.47); MONOCYTES PERCENT AUTO 7 % (4-13); Mean Corpuscular HGB 31.7 pg (26.0-34.0); Mean Corpuscular Volume 99 fL (80-100); NEUTROPHILS ABSOLUTE AUTO 9.83 K/mm3 (1.96-9.15); NEUTROPHILS PERCENT AUTO 86 % (41-73); Platelet Count 155 K/mm3 (150-400); Red Blood Cell Count 4.58 M/mm3 (4.30-5.90); White Blood Cell Count 11.48 K/mm3 (4.00-11.30)
--- NOTE | 2022-09-21 06:39 | NUR ---
PT HAS HAD SMALL VOIDS THIS NIGHT. MEDICATED WITH 25 MCG'S FENTANYL FOR NECK AND SHOULDER PAIN WITH GOOD RESULTS. HAS NOT HAD ANY BM'S THIS NIGHT. NGT HAS 2050 ML BROWNISH COLORED OUTPUT. HAS BEEN ALLOWED SMALL SIPS OF WATER SPARINGLY. PT'S DAUGHTER ROOMS IN FOR THE NIGHT. VERY SUPPORTIVE AND THERAPEUTIC FOR PT. PT HAS TOLERATED TURNS IN BED. WILL CONTINUE TO MONITOR PT, AND WILL REPORT OFF TO ONCOMING RN.
--- NOTE | 2022-09-21 07:00 | NUR ---
ASSUMPTION OF CARE PT RECEIVING TPN. HE IS ON AIRVO 45L/75%. SPO2 85-88%, TITRATED TO 60L/90% TO MAINTAIN SPO2 >90%. PT ALERT AND ORIENTED. LUNGS COARSE, WEAK PRODUCTIVE COUGH. PT USES ORAL SUCTION INDEPENDENTLY. C/O 5/10 ALL OVER PAIN. NGT TO LOW INT SUCTION WITH BROWN/GREEN OUTPUT. PT DENIES GI UPSET, ABDOMEN NONTENDER. PT ASSISTED WITH URINAL AND VOIDED 100ML. DAUGHTER AT BEDSIDE. BED IN LOW POSITION AND CALL LIGHT WITHIN REACH.
[2022-09-21 07:07] LABS: Magnesium, Blood 2.8 mg/dL (1.6-2.4)
[2022-09-21 07:10] LABS: Blood Urea Nitrogen 34 mg/dL (8-24); Bun/Creatinine Ratio 40.9 (12.0-20.0); CO2, Blood >45 mmol/L (21-32); Calcium, Blood 8.4 mg/dL (8.5-10.1); Chloride, Blood 98 mmol/L (98-108); Creatinine, Blood 0.83 mg/dL (0.60-1.20); Glomerular Filtration Rate 88 (60-); Glucose, Blood 151 mg/dL (70-99); Phosphorus, Blood 2.9 mg/dL (2.5-4.9); Sodium, Blood 146 mmol/L (136-145); Triglycerides 124 mg/dL (30-160)
[2022-09-21 07:11] LABS: Anion Gap Unable to Calculate mmol/L (6-16)
[2022-09-21 14:12] LABS: PCO2 Arterial 61.2 mmHg (35-45); PO2 Arterial 58.7 mmHg (80-100); pH Blood Arterial 7.52 (7.35-7.45)
--- NOTE | 2022-09-21 18:21 | NUR ---
SHIFT SUMMARY PT RECEIVING CPN. HE REMAINS ON AIRVO 60L/90% TO MAINTAIN SPO2 >90%. LUNGS ARE COARSE, AND PT HAS WEAK PRODUCTIVE COUGH. PT USES ORAL SUCTION INDEPENDENTLY AND ORAL CARE PROVIDED THROUGHOUT THE DAY. NGT TO LOW INT SUCTION WITH 1300ML BROWN/GREEN OUTPUT THIS SHIFT. BOWEL TONES HYPOACTIVE, ADBOMEN NONTENDER. PT HAS VOIDED SEVERAL TIMES THROUGHOUT THE SHIFT. DAUGHTER HAS BEEN AT BEDSIDE FOR MOST OF THE DAY AND UPDATED ON PLAN OF CARE. PT CURRENTLY WATCHING TV WITH DAUGHTER. CALL LIGHT WITHIN REACH.
--- NOTE | 2022-09-21 20:00 | NUR ---
ASSUMED CARE OF PT AT 1900. REPORT RECEIVED. PT PRESENTS IN BED. ALERT AND ORIENTED PLEASANT AND COOPERATIVE WITH CARE AND ASSESSMENT. PT'S SATURATIONS REMAIN NEAR 90 PERCENT WITH AIRVO. NGT WITH BROWNISH COLORED LIQUID RETURN TO LIWS. PT DENIES NAUSEA. WILL REVIEW CHART AND PLAN OF CARE FOR THIS PT.
--- NOTE | 2022-09-21 23:00 | NUR ---
PT HAVING SOME ISSUES WITH MAINTAINING SATURATINS > 86-88 PERCENT WITH AIRVO. SWITCHED PT TO BIPAP WITH 12/6 AND 85 PERCENT FIO2. THIS HAS BEEN AFFECTIVE IN KEEPING SATURATIONS > 90 PERCENT.
[2022-09-22] VITALS (24 sets, daily range): BP systolic 93–129; BP diastolic 47–88
--- NOTE | 2022-09-22 01:03 | NUR ---
PT TOLERATING BIPAP WELL WITH / WITH 85 PERCENT FIO2. MAINTAINS SATURATIONS > 90 PERCENT. PT HAS BEEN MORE RESTFUL THIS NIGHT. DAUGHTER ROOMS IN. PT TOLERATING Q 2 HOUR TURNS IN BED. WILL CONTINUE TO MONITOR.
[2022-09-22 04:37] LABS: BASOPHILS ABSOLUTE AUTO 0.05 K/mm3 (0.00-0.23); BASOPHILS PERCENT AUTO 0 % (0-2); EOSINOPHILS ABSOLUTE AUTO 0.03 K/mm3 (0.00-0.68); EOSINOPHILS PERCENT AUTO 0 % (0-6); Hematocrit 47.7 % (37.0-53.0); Hemoglobin 15.7 g/dL (13.5-17.5); IMMATURE GRAN ABSOLUTE AUTO 0.11 K/mm3 (0.00-0.10); IMMATURE GRAN PERCENT AUTO 1 % (0-1); LYMPHOCYTES ABSOLUTE AUTO 0.99 K/mm3 (0.84-5.20); LYMPHOCYTES PERCENT AUTO 6 % (21-46); MONOCYTES ABSOLUTE AUTO 1.09 K/mm3 (0.16-1.47); MONOCYTES PERCENT AUTO 7 % (4-13); Mean Corpuscular HGB 32.3 pg (26.0-34.0); Mean Corpuscular HGB Conc 32.9 g/dL (31.5-36.5); Mean Corpuscular Volume 98 fL (80-100); Mean Platelet Volume 11.5 fL (9.1-12.4); NEUTROPHILS ABSOLUTE AUTO 13.94 K/mm3 (1.96-9.15); NEUTROPHILS PERCENT AUTO 86 % (41-73); Platelet Count 162 K/mm3 (150-400); RDW Coefficient Variation 13.9 % (11.7-14.2); RDW Standard Deviation 50.6 fL (35.1-46.3); Red Blood Cell Count 4.86 M/mm3 (4.30-5.90); White Blood Cell Count 16.21 K/mm3 (4.00-11.30)
[2022-09-22 04:40] LABS: Base Excess Venous 16.2 mmol/L; Bicarbonate Venous 36.8 mmol/L (24.0-30.0); PCO2 Venous 55.5 mmHg (38-42); pH Blood Venous 7.47 (7.34-7.37)
[2022-09-22 04:57] LABS: Bun/Creatinine Ratio 43.3 (12.0-20.0); Calcium, Blood 8.8 mg/dL (8.5-10.1); Creatinine, Blood 0.95 mg/dL (0.60-1.20); Magnesium, Blood 2.4 mg/dL (1.6-2.4); Phosphorus, Blood 2.4 mg/dL (2.5-4.9); Potassium, Blood 2.8 mmol/L (3.5-5.5)
--- NOTE | 2022-09-22 06:30 | NUR ---
PT HAS DONE WELL WITH BIPAP. SPOKE WITH DR BUTTERFIELD ON TELEPHONE THIS MORNING. POTASSIUM REPLACEMENT ORDERED. PT WOULD NOT ALLOW ANOTHER ATTEMPT AT AN ABG THIS AM SECONDARY TO UNSUCCESSFUL ATTEMPTS. VBG DRAWN FROM PICC LINE. RESULTS ALSO CONVEYED TO DR BUTTERFIELD. PT'S DAUGHTER HAS ROOMED IN FOR THE NIGHT. WILL CONTINUE TO MONITOR PT, AND WILL REPORT OFF TO ONCOMING RN.
--- NOTE | 2022-09-22 07:00 | NUR ---
ASSUMPTION OF CARE PT ON BIPAP 04/12 WITH 70% FIO2. PT RECEIVING TPN AND KCL. NGT TO LOW INT SUCTION WITH BROWN OUTPUT. VSS AT THIS TIME. DAUGHTER AT BEDSIDE.
--- NOTE | 2022-09-22 13:39 | NUR ---
UPDATE PT IS ON AIRVO 50L/70% WITH SPO2 >92%. COUGH AND PHLEGM HAS DECREASED SINCE YESTERDAY. PT CONTINUES TO OCCASIONALLY USE ORAL SUCTION INDEPENDENTLY. DRAINAGE FROM NGT HAS DECREASED SINCE REMOVING 1900ML THIS AM. NGT TO LOW INT SUCTION. DAUGHTER HAS BEEN AT BEDSIDE THROUGHOUT NIGHT AND THIS AM. THIS RN HAD EXTENSIVE CONVERSATION WITH DAUGHTER CARLEE. SHE IS VERY AWARE OF PT'S CONDITION AND PROGNOSIS. SHE REITERATES FULL CODE STATUS DUE TO MULTIPLE CONVERSATIONS WITH PT AND HAS DURABLE POWER OF TOWER ERECTOR. PT IS ALERT AND ORIENTED AND AGREES WITH PLAN TO MAINTAIN FULL CODE STATUS. CARLEE AWARE PALLIATIVE CARE MAY VISIT TO CHECK IN AND DISCUSS PLAN OF CARE IN THE FUTURE.
--- NOTE | 2022-09-22 18:00 | NUR ---
Pt's daughter Eliana had long talk with the bedside RN Dleia today, and expressed her understanding of "how sick" the pt is, including the poor prognosis. She states as long as he wants to continue, she will advocate for him to continue. He is still able to make his own decisions according to her, and she will continue to cheer him on. No changes to code status or treatment plan at this time. Palliative will continue with supportive visits to pt and daughter.
--- NOTE | 2022-09-22 18:20 | NUR ---
SHIFT SUMMARY PT CONTINUES TO RECEIVE TPN. HE IS ON AIRVO 50L/70%. LUNGS ARE CLEAR, DIMINISHED IN BASES. PT HAS PRODUCTIVE COUGH AND USES ORAL SUCTION. PLAN TO TRANSITION BACK TO BIPAP AT BEDTIME. NGT TO LIS WITH A SHIFT OUTPUT OF 3200ML THIN DARK BROWN LIQUID. PT VOIDED SEVERAL TIMES THROUGHOUT THE DAY. CEILING LIFT TO PLACE PT IN CHAIR. PT SAT IN CHAIR FOR APPROX 3HRS. DAUGHTER BACK AT BEDSIDE AND UPDATED ON PLAN OF CARE. BED IN LOW POSITION AND CALL LIGHT WITHIN REACH.
--- NOTE | 2022-09-22 20:00 | NUR ---
ASSUMED CARE OF PT AT 1915. REPORT RECEIVED AT BEDSIDE. PT PRESENTS IN BED. WATCHING BASEBALL GAME. IS PLACED TO BIPAP 10/6 WITH FIO2 70 PERCENT BY RESPIRATORY CARE. PT'S DAUGHTER IN ROOM. PT INDICATES UNDERSTANDING OF BIPAP AND USE FOR NIGHT, AND THAT HE WOULD BE TURNED Q 2 HOURS FOR PROTECTION OF SKIN INTEGRITY. WILL REVIEW CHART AND PLAN OF CARE FOR THIS PT.
[2022-09-23] VITALS (41 sets, daily range): BP systolic 83–130; BP diastolic 25–74
--- NOTE | 2022-09-23 01:54 | NUR ---
PT COMPLIANT WITH WEARING BIPAP. HAS NOT HAD ANY COMPLAINTS OF PAIN THIS NIGHT. NGT HAS OUTPUT OF BROWNISH COLORED SECRETIONS. DAUGHTER ROOMS IN FOR THE NIGHT.
[2022-09-23 04:26] LABS: BASOPHILS ABSOLUTE AUTO 0.03 K/mm3 (0.00-0.23); BASOPHILS PERCENT AUTO 0 % (0-2); EOSINOPHILS ABSOLUTE AUTO 0.03 K/mm3 (0.00-0.68); EOSINOPHILS PERCENT AUTO 0 % (0-6); Hemoglobin 14.3 g/dL (13.5-17.5); IMMATURE GRAN ABSOLUTE AUTO 0.17 K/mm3 (0.00-0.10); IMMATURE GRAN PERCENT AUTO 1 % (0-1); LYMPHOCYTES ABSOLUTE AUTO 1.03 K/mm3 (0.84-5.20); LYMPHOCYTES PERCENT AUTO 6 % (21-46); MONOCYTES ABSOLUTE AUTO 0.95 K/mm3 (0.16-1.47); MONOCYTES PERCENT AUTO 6 % (4-13); Mean Corpuscular HGB 32.3 pg (26.0-34.0); Mean Corpuscular HGB Conc 33.3 g/dL (31.5-36.5); Mean Corpuscular Volume 97 fL (80-100); Mean Platelet Volume 11.7 fL (9.1-12.4); NEUTROPHILS ABSOLUTE AUTO 14.96 K/mm3 (1.96-9.15); NEUTROPHILS PERCENT AUTO 87 % (41-73); Platelet Count 156 K/mm3 (150-400); RDW Coefficient Variation 13.8 % (11.7-14.2); RDW Standard Deviation 49.2 fL (35.1-46.3); Red Blood Cell Count 4.43 M/mm3 (4.30-5.90); White Blood Cell Count 17.17 K/mm3 (4.00-11.30)
[2022-09-23 04:45] LABS: Bun/Creatinine Ratio 49.1 (12.0-20.0); Calcium, Blood 7.7 mg/dL (8.5-10.1); Creatinine, Blood 1.12 mg/dL (0.60-1.20); Magnesium, Blood 2.2 mg/dL (1.6-2.4); Phosphorus, Blood 3.7 mg/dL (2.5-4.9); Potassium, Blood 2.6 mmol/L (3.5-5.5)
[2022-09-23 05:36] LABS: Base Excess Venous 12.8 mmol/L; Bicarbonate Venous 33.8 mmol/L (24.0-30.0); PCO2 Venous 60.5 mmHg (38-42)
--- NOTE | 2022-09-23 06:30 | NUR ---
PT HAS RESTED WELL THIS NIGHT. HAS ONLY COMPLAINED OF PAIN ONCE THIS NIGHT WHICH RESPONDED WELL TO FENTANYL 25 MCG'S. DAUGHTER ROOMED IN. VERY ATTENTIVE TO PT'S NEEDS. PT HAS WORN BIPAP THROUGHOUT THE NIGHT. ACKNOWLEDGES THAT HE MAY BE CHANGED BACK TO AIRVO FOR DAY. NGT DRAINS 1.1 LITER LIQUID BROWN/GREEN FLUID. WILL CONTINUE TO MONITOR PT, AND WILL REPORT OFF TO ONCOMING RN.
--- NOTE | 2022-09-23 07:10 | NUR ---
CARE ASSUMPTION DURING BEDSIDE SHIFT REPORT Timoteo TOVAR RN THE PT IS ASLEEP COMFORTABLY IN BED WEARING THE BIPAP MASK, BIPAP 14/8 W 65% FIO2. PT APPEARING COMFOORTABLE BUT HAS RR IN THE MID 20'S. MONITOR SHOWING SR IN THE 90'S. PT HAS NG TUBE ATTACHED TO LIS W VERY DARK BROWN OUTPUT. DAUGHTER OF PT IS ASLEEP IN THE RECLINER IN THE ROOM.
--- NOTE | 2022-09-23 14:00 | NUR ---
UPDATE PROVIDER NOTIFIED THAT PT'S BP HAS BEEN TRENDING DOWN AND HIS SPO2 IS DROPPING WHILE ON THE AIRVO. PT PLACED BACK ON BIPAP. 500ML LR BOLUS OREDED. BLOOD CULTURES, SPUTUM CULTURES AND PALAFOX CATHETER ORDERED.
[2022-09-23 14:54] LABS: Source, Urine Foley catheter
--- NOTE | 2022-09-23 14:54 | NUR ---
UPDATE DR. THOMPSON AT ASKING ABOUT CHANGES IN PT'S CONDITIONED. PROVIDER UPDATED ON THE PT'S BP TREND WELL NEW ORDERS PLACED BY DR. KIRKPATRICK. PROVIDER THANKED THIS RN FOR UPDATE AND EXITED THE RM.
[2022-09-23 15:05] LABS: Appearance, Urine Clear (Clear); Bilirubin, Urine Neg (Neg); Blood, Urine Neg (Neg); Color, Urine Yellow (P-Yellow); Glucose Qualitative, Urine Neg (Neg); Ketones, Urine Neg (Neg); Leukocyte Esterase, Urine Neg (Neg); Nitrite, Urine Neg (Neg); Protein, Urine 1+ (Neg); Specific Gravity, Urine 1.015 (1.003-1.022); Urobilinogen, Urine NORM (Normal)
[2022-09-23 16:14] LABS: Hematocrit 42.7 % (37.0-53.0); Hemoglobin 14.1 g/dL (13.5-17.5)
--- NOTE | 2022-09-23 18:07 | NUR ---
IMMUNOTHERAPY Dr Berger in to see patient. Discussed plan of care with pt and pt's daughter. Plan for endoscopy tomorrow, dependent on pt's respiratory status. Provider requested that nursing staff obtains name of immunotherapy that pt has received. This RN spoke to personal banking assistant oncologist, covering for pt's oncologist Dr Aguilar. Provider stated that pt has received infusions of cemiplimab ([id number]).
--- NOTE | 2022-09-23 18:23 | NUR ---
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 THE PT WAS ABLE TO WEAR THE AIRVO 50L 60% FIO2 FOR MOST OF THE DAY W SPO2 >92% HOWEVER HE WAS PLACED BACK ON BIPAP 14/8 W 60% FIO2 FOR A FEW HOURS HIS SPO2 DROPPED <89% ON AIRVO. PT'S BP HAS BEEN SOFT THIS SHIFT REQUIRING ONE 500ML BOLUS OF LR FOR MAP <60. MONITOR SHOWING SR 80'S-90'S THIS SHIFT. PT DENYING ANY PAIN OR NAUSEA THIS SHIFT. NG TUBE CONTINUED TO PUT OUT DARK BROWN FLUID SO GASTRIC GUAIAC SENT TO LAB AND CAME BACK POSITIVE. GI CONSULTED AND PROTONIX GTT STARTED. DR. KOROMA CONSULTING THE PT AND THE PT'S DAUGHTER AT THIS SHIFT, PROTONIX GTT DC'D AT THIS TIME. CBG'S WNL AND STABLE. PT RECIEVED TOTAL OF 80MEQ OF IV POTASSIUM THIS SHIFT. WILL REPORT TO ONCOMING RN.
[2022-09-24] VITALS (25 sets, daily range): BP systolic 100–134; BP diastolic 45–107
[2022-09-24 04:14] LABS: Calcium, Blood 7.5 mg/dL (8.5-10.1); Magnesium, Blood 2.3 mg/dL (1.6-2.4); Phosphorus, Blood 3.3 mg/dL (2.5-4.9); Potassium, Blood 2.8 mmol/L (3.5-5.5)
--- NOTE | 2022-09-24 05:17 | NUR ---
SHIFT SUMMARY: Pt has been sleeping comfortably all night. Denies pain/ discomfort. He has been on BIPAP all night. Vitals stable, adequate BP and urine output. Minimal output from NG tube, present bowel tones. Potassium on morning labs was 2.8, Dr. Mcgarry notified and order for 60meq KCl IV received.
[2022-09-24 08:16] LABS: BASOPHILS ABSOLUTE AUTO 0.04 K/mm3 (0.00-0.23); BASOPHILS PERCENT AUTO 0 % (0-2); EOSINOPHILS ABSOLUTE AUTO 0.05 K/mm3 (0.00-0.68); EOSINOPHILS PERCENT AUTO 0 % (0-6); Hematocrit 39.7 % (37.0-53.0); Hemoglobin 13.1 g/dL (13.5-17.5); IMMATURE GRAN ABSOLUTE AUTO 0.14 K/mm3 (0.00-0.10); IMMATURE GRAN PERCENT AUTO 1 % (0-1); LYMPHOCYTES ABSOLUTE AUTO 0.76 K/mm3 (0.84-5.20); LYMPHOCYTES PERCENT AUTO 6 % (21-46); MONOCYTES PERCENT AUTO 6 % (4-13); Mean Corpuscular HGB 31.8 pg (26.0-34.0); Mean Corpuscular Volume 96 fL (80-100); Mean Platelet Volume 11.8 fL (9.1-12.4); NEUTROPHILS ABSOLUTE AUTO 11.46 K/mm3 (1.96-9.15); NEUTROPHILS PERCENT AUTO 87 % (41-73); Platelet Count 172 K/mm3 (150-400); RDW Coefficient Variation 13.9 % (11.7-14.2); RDW Standard Deviation 49.2 fL (35.1-46.3); Red Blood Cell Count 4.12 M/mm3 (4.30-5.90); White Blood Cell Count 13.25 K/mm3 (4.00-11.30)
--- NOTE | 2022-09-24 08:26 | NUR ---
CARE OF PT ASSUMED AT 0700. PT SLEEPING, AWAKENS TO VOICE, ABLE TO STATE NAME AND FOLLOW SIMPLE COMMANDS. PT VERY WEAK/LETHARGIC. PT DECLINED ORAL CARE BUT LET ME APPLY NYSTATIN TO MOUTH, THRUSH VISIBLE. RHONCHI T/O, WET NON-PRODUCTIVE COUGH. SATS >90% ON AIRVO 40L/60%. DR KIRKPATRICK IN THIS AM, UPDATE GIVEN. EGD PLANNED FOR THIS AM W ANESTHESIA. PT'S DAUGHTER SLEEPING AT BEDSIDE.
--- NOTE | 2022-09-24 12:25 | NUR ---
EGD IS POSTPONED D/T PT'S RESP STATUS.
--- NOTE | 2022-09-24 18:01 | NUR ---
PT REFUSING ORAL CARE, REFUSING NYSTATIN. DECLINED TO GET UP IN CHAIR TODAY, BUT HAS ALLOWED FOR OTHER CARE. FLAT AFFECT/LETHARGIC TODAY. SPEECH WEAKER BUT COUGH REMAINS STRONG. 500CC LIGHT HERBERT OUTPUT FROM NGT TODAY. SUFFICIANT U/0 TODAY. TPN INFUSING AT 105CC/HR. PT HAS BEEN ON AIRVO AT 40L/60% T/O SHIFT.
[2022-09-25] VITALS (23 sets, daily range): BP systolic 94–143; BP diastolic 48–101
[2022-09-25 04:36] LABS: BASOPHILS ABSOLUTE AUTO 0.04 K/mm3 (0.00-0.23); BASOPHILS PERCENT AUTO 0 % (0-2); EOSINOPHILS ABSOLUTE AUTO 0.04 K/mm3 (0.00-0.68); EOSINOPHILS PERCENT AUTO 0 % (0-6); Hemoglobin 12.5 g/dL (13.5-17.5); IMMATURE GRAN ABSOLUTE AUTO 0.14 K/mm3 (0.00-0.10); IMMATURE GRAN PERCENT AUTO 1 % (0-1); LYMPHOCYTES ABSOLUTE AUTO 0.81 K/mm3 (0.84-5.20); LYMPHOCYTES PERCENT AUTO 7 % (21-46); MONOCYTES ABSOLUTE AUTO 0.68 K/mm3 (0.16-1.47); MONOCYTES PERCENT AUTO 6 % (4-13); Mean Corpuscular HGB 31.6 pg (26.0-34.0); Mean Corpuscular HGB Conc 32.9 g/dL (31.5-36.5); Mean Corpuscular Volume 96 fL (80-100); NEUTROPHILS ABSOLUTE AUTO 9.45 K/mm3 (1.96-9.15); NEUTROPHILS PERCENT AUTO 85 % (41-73); Platelet Count 160 K/mm3 (150-400); RDW Coefficient Variation 13.7 % (11.7-14.2); RDW Standard Deviation 48.3 fL (35.1-46.3); Red Blood Cell Count 3.96 M/mm3 (4.30-5.90); White Blood Cell Count 11.16 K/mm3 (4.00-11.30)
[2022-09-25 04:59] LABS: International Normalized Ratio 1.13; Prothrombin Time Results 11.8 Sec (9.7-11.5)
[2022-09-25 05:07] LABS: Albumin, Blood 1.7 g/dL (3.4-5.0); Albumin/Globulin Ratio 0.4 (0.8-1.8); Bilirubin, Total 2.4 mg/dL (0.1-1.0); Bun/Creatinine Ratio 54.6 (12.0-20.0); Calcium, Blood 7.6 mg/dL (8.5-10.1); Creatinine, Blood 0.84 mg/dL (0.60-1.20); Globulin, Blood 3.8 g/dL (2.2-4.0); Magnesium, Blood 2.2 mg/dL (1.6-2.4); Potassium, Blood 3.1 mmol/L (3.5-5.5); Total Protein, Blood 5.5 g/dL (6.4-8.2)
--- NOTE | 2022-09-25 06:01 | NUR ---
SHIFT SUMMARY: Patient is alert and oriented, easy to wake from sleep. Per Dr. Carlos leary to leave on Airvo overnight because he has been sleeping on and off throughout the day maintaining his sats and mentation on the airvo. He has a wet, productive but congested cough. NG had 650ml out overnight, active bowel tones. Pt getting up to 1000ml on I.S. this morning. Encouraged coughing, deep breathing, using I.S. Sats have remained in the low 90s all night. Medicated once for nose pain with fentanyl.
--- NOTE | 2022-09-25 07:48 | NUR ---
CARE OF PT ASSUMED AT 0700. PTS SATS AROUND 90% ON AIRVO 40L/60%. RHONCHI T/O. SATS IMPROVED WITH COUGH AND DEEP BREATH. PT W FLAT AFFECT, DENIES C/O PAIN. OX3. PT CONTINUES TO REFUSE NYSTATIN FOR THRUSH. PLAN: OOB TO CHAIR TOLERATED.
--- NOTE | 2022-09-25 08:36 | NUR ---
PT C/O LOWER ABD CRAMPING 09/14. DR KIRKPATRICK NOTIFIED AND EXAMINED PT. KUB ORDERED AND COMPLETED. DUCOLAX SUPP GIVEN.
--- NOTE | 2022-09-25 12:44 | NUR ---
PT REFUSED BATH AND THEN REFUSED TURN. PT ENCOURAGED TO LET STAFF MOVE HIM TO PREVENT BEDSORES AND TO HELP HIS LUNGS. WILL CONT TO ENCOURAGE MOVEMENT. WILL ASK AGAIN ABOUT GETTING PT UP TO CHAIR WHICH HE ALSO REFUSED. PT IS ALSO REFUSING ORAL CARE. SWAB OFFERED TO PT TO LET HIM ASSIST W ORAL CARE ALTERNATIVE; PT DECLINED. PT WATCHING TV, DOZING ON AND OFF.
--- NOTE | 2022-09-25 13:38 | NUR ---
PT AGREED TO SOME CARE INCLUDING CHANGING ORELLANA AND CLEANING BOTTOM (NO BM FROM SUPP). PT ALSO AGREED TO CHAIR. PT OOB TO CHAIR USING LIFT. PT SATS HAVE BEEN TRENDING DOWNWARD LOW 85% BUT THEN BACK UP TO 90%. I.S. AND FLUTTER VALVE GIVEN WHILE UP IN CHAIR. PT UNABLE TO COUGH FULLY; WEAK COUGH. RT CALLED AND WILL BE BY SHORTLY TO SEE PT.
--- NOTE | 2022-09-25 13:49 | NUR ---
RT AT BEDSIDE
--- NOTE | 2022-09-25 13:55 | NUR ---
AIRVO INCREASED TO 50L/75%. RT TO GIVE PT BREATHING TX.
--- NOTE | 2022-09-25 15:31 | NUR ---
SATS 87-90%, BONIFACIO RT SPOKE WITH DR KIRKPATRICK ABOUT RESP STATUS. RESP RATE AROUND 20. (PT REFUSES BIPAP). DR SOLIS IN TO SEE PT, UPDATE GIVEN.
--- NOTE | 2022-09-25 16:56 | NUR ---
PT WITH TEMP 101.5, DR KIRKPATRICK AWARE. VANCO AND SPUTUM ORDERED.
--- NOTE | 2022-09-25 18:13 | NUR ---
TEMP UP TO 102.0. COOL CLOTH PLACED ON FOREHEAD, FAN ON PT, BLANKET PULLED DOWN. AIRVO AT 50L/75%. SATS 88-93%. PT BOOSTED AND REPOSTIONED IN CHAIR.
[2022-09-26] VITALS (24 sets, daily range): BP systolic 113–152; BP diastolic 49–77
[2022-09-26 04:05] LABS: BASOPHILS ABSOLUTE AUTO 0.04 K/mm3 (0.00-0.23); BASOPHILS PERCENT AUTO 0 % (0-2); EOSINOPHILS ABSOLUTE AUTO 0.02 K/mm3 (0.00-0.68); EOSINOPHILS PERCENT AUTO 0 % (0-6); Hematocrit 39.3 % (37.0-53.0); Hemoglobin 13.3 g/dL (13.5-17.5); IMMATURE GRAN ABSOLUTE AUTO 0.08 K/mm3 (0.00-0.10); IMMATURE GRAN PERCENT AUTO 1 % (0-1); LYMPHOCYTES ABSOLUTE AUTO 0.56 K/mm3 (0.84-5.20); LYMPHOCYTES PERCENT AUTO 6 % (21-46); MONOCYTES ABSOLUTE AUTO 0.64 K/mm3 (0.16-1.47); MONOCYTES PERCENT AUTO 7 % (4-13); Mean Corpuscular HGB Conc 33.8 g/dL (31.5-36.5); Mean Corpuscular Volume 95 fL (80-100); NEUTROPHILS ABSOLUTE AUTO 8.38 K/mm3 (1.96-9.15); NEUTROPHILS PERCENT AUTO 86 % (41-73); Platelet Count 156 K/mm3 (150-400); RDW Coefficient Variation 13.8 % (11.7-14.2); RDW Standard Deviation 47.4 fL (35.1-46.3); Red Blood Cell Count 4.16 M/mm3 (4.30-5.90); White Blood Cell Count 9.72 K/mm3 (4.00-11.30)
[2022-09-26 04:26] LABS: Bun/Creatinine Ratio 52.8 (12.0-20.0); Calcium, Blood 8.2 mg/dL (8.5-10.1); Creatinine, Blood 0.87 mg/dL (0.60-1.20); Potassium, Blood 3.9 mmol/L (3.5-5.5)
--- NOTE | 2022-09-26 06:17 | NUR ---
SHIFT SUMMARY: At beginning of shift, pt was up to chair on Airvo at 75% FiO2 with sats in the low 90s. Weak cough effort, lung sounds diminished. Unable to reach 500ml on I.S. He stated that he was having trouble breathing and was tired. Pt transfered back to bed using the lift. He agreed to wear the BIPAP overnight. With BIPAP on, sats are in the mid to high 90s on 60% FiO2. Still need a sputum sample, he has not coughed up enough for a sufficient sample. Medicated for nose pain with 25mcg of fentanyl twice last night, he slept comfortably for most of the night. Vitals stable. Tmax at beginning of shift was 102.4, now down to 100.5. 400ml out of NG tube. Adequate urine output.
--- NOTE | 2022-09-26 07:00 | NUR ---
ASSUMPTION OF CARE PT ON BIPAP 04/12/60%. HE IS RECEIVING TPN. LUNGS COARSE THROUGHOUT. PT HAS WEAK COUGH. PALAFOX PATENT AND DRAINING TO GRAVITY. DAUGHTER AT BEDSIDE. SEE SHIFT ASSESSMENT.
[2022-09-26 17:31] LABS: Source, Urine Foley catheter
[2022-09-26 17:58] LABS: Appearance, Urine Clear (Clear); Blood, Urine 5+ (Neg); Color, Urine Amber (P-Yellow); Glucose Qualitative, Urine Neg (Neg); Ketones, Urine Neg (Neg); Leukocyte Esterase, Urine 1+ (Neg); Nitrite, Urine Neg (Neg); Protein, Urine 2+ (Neg); Urobilinogen, Urine 1+ (Normal)
--- NOTE | 2022-09-26 18:11 | NUR ---
SHIFT SUMMARY PT HAS BEEN ON AIRVO SINCE APPROX 1130 DUE TO C/O DISCOMFORT OF BIPAP MASK. HE HAS BEEN ON 55L/55% WITH SPO2 >90%. RR 14-19. LUNGS COARSE THROUGHOUT. PT HAS WEAK PRODUCTIVE COUGH AND USES ORAL SUCTION INDEPENDENTLY. PT RECEIVING TPN. NGT TO LIS WITH 550ML YELLOW OUTPUT. ABDOMEN REMAINS VERY TENDER TO LIGHT PALPATION. PT MEDICATED PER EMAR. PT HAS BEEN DROWSY THROUGHOUT MOST OF THE DAY. HE IS WITHDRAWN BUT ANSWERS QUESTIONS. HE OCCASIONALLY DECLINES CARE INCLUDING ORAL CARE. DAUGHTER UPDATED ON PT'S STATUS AND AT BEDSIDE. BED IN LOW POSITION AND CALL LIGHT WITHIN REACH.
[2022-09-26 18:12] LABS: Bilirubin, Urine 1+ (Neg)
[2022-09-26 18:14] LABS: Red Blood Cells, Urine 25-50 /hpf (0-2); Renal Epithelial Few /hpf (0-Rare)
[2022-09-26 18:15] LABS: Bacteria Mod /hpf; Squamous Epithelial Cells Few /hpf (Few)
[2022-09-27] VITALS (13 sets, daily range): BP systolic 106–142; BP diastolic 54–116
--- NOTE | 2022-09-27 05:52 | NUR ---
SHIFT SUMMARY: Patient very tired and weak. Slept soundly for most of the night with BIPAP on. Lungs still sound coarse and he has a weak, congested, wet sounding cough. Turned every 2 hours, medicated for pain with fentanyl as needed. Padron leaked one time throughout the night but has not leaked since. 250ml of output from the NG. Vitals stable, afebrile. No labs were ordered this AM.
--- NOTE | 2022-09-27 08:55 | NUR ---
ASSUMED CARE / DR GILL: REPORT RECEIVED FROM VINOD Osorio RN. ASSUMED CARE OF THIS PT AT APPROX 0700. ON ASSESSMENT, THE PT IS RESTING QUIETLY. HE AWAKENS TO VERBAL STIMULUS & IS ABLE TO ANSWER YES/NO QUESTIONS BY NODDING HIS HEAD AT THAT TIME. HE STS HAVING GENERALIZED PAIN & NODS HEAD "YES" TO WANTING PAIN MEDS. LS COARSE/ RHONCHORUS T/O. PT ON BIPAP W/ SETTINGS 12/6 & 60% FIO2. O2 SATS > 90% ON AVG. WET COUGH NOTED W/ NO SPUTUM VISUALIZED. MONITOR SHOWS SR W/ BBB, HR 70-80s, BP STABLE. NGT IN PLACE TO RIGHT NARE TO LIS, BROWN/ BILE OUTPUT NOTED IN CANISTER. HYPOACTIVE BT, NO BM SINCE ADMISSION. PALAFOX PATENT/ DRAINING DARK YELLOW-JULIANA URINE. SKIN CONDITION OVERALL FRAGILE, ECCHYMOTIC. REPOSITIONING/ ADLs HAS BEEN REFUSED BY THE PT THIS AM, WILL CONTINUE TO ATTEMPT AT LEAST Q2H. DR GILL AT BEDSIDE THIS AM & HAS HAD AN EXTENSIVE CONVERSATION W/ THE PT & HIS DAUGHTER CARLEE REGARDING THE PT's PROGNOSIS & OPTIONS FOR CONTINUED CARE. THEY ARE DISCUSSING AMONGST THEMSELVES THE POSSIBILITY OF HOSPICE VS MORE AGGRESSIVE TX MEASURES. PALLIATIVE CARE NOTIFIED BY THIS RN. WILL CONTINUE TO MONITOR & UPDATE NEEDED.
--- NOTE | 2022-09-27 10:35 | NUR ---
Spiritual care Visit. Pt. is on Bipap. Daughter is present. Pt. is able to repond and welcomed this motion study technician. Daughter displayed apprehension regarding spiritual care visit. Prayed with Pt. at his request. Pt. has made a decision for comfort care. Will remain available to Pt. and family.
--- NOTE | 2022-09-27 12:10 | NUR ---
Pt and daughter Eliana are in agreement for pt to begin comfort measures today. Eliana states she supports the pt's decision, as always. The pt does nod "yes" when asked if he is in pain, and again when asked if he is SOB. Plan to leave NG to suction for now to assist with ongoing secretions. Eliana is planning to bring pt's dog in to see him just as soon as he is moved from ICU. Most routine medications d/c'd and comfort meds added.
--- NOTE | 2022-09-27 14:25 | NUR ---
COMFORT MEASURES / TRANSFER TO MEDICAL FLOOR: AFTER FURTHER DISCUSSION W/ THE PT & HIS DAUGHTER, THEY HAVE DECIDED TO PURSUE COMFORT MEASURES ONLY FOR THIS PT. CODE STATUS CHANGED TO DNR & PALLIATIVE RN, CATIE, HAS PLACED COMFORT MEASURE ORDERS - SEE PALLIATIVE NOTE. CARLEE, THE PT's DAUGHTER, HAS STEPPED OUT OF THE UNIT FOR A COUPLE OF HOURS & STS OKAY TO MOVE THE PT UPSTAIRS BEFORE SHE RETURNS. THE PT HAS BEEN TAKEN TO ROOM 364 VIA BED AT APPROX 1420 BY DELFINA MCDOWELL. ALL BELONGINGS HAVE BEEN TAKEN UP WITH THE PT AT THIS TIME. REPORT HAS BEEN GIVEN TO BARBARA Loera RN TO ASSUME CARE.
--- NOTE | 2022-09-27 15:09 | NUR ---
TRANSFER NOTE OBTAINED REPORT FROM KANE BARBOSA RN IN ICU. HENRY ARRIVED O ROOM ON BED, SLIDE TRANSFERRED. DROWSY AND WEAK BUT WAKES EASILY AND ABLE O PROVIDE ONE-WORD ANSWERS AND NOD HEAD. 15L NON-REBREATHER FOR COMFORT. BEDREST, ARMS AND HEELS FLOATED, EGG-CRATE MATTRESS IN PLACE. HEEL PROTECTORS IN PLACE. PALAFOX PATIENT AND DRAINING. NG TUBE TO LIS, DRAINING YELLOW-GREEN FLUID. MEDICATED PATIENT FOR PAIN PER EMAR. RESTING IN BED AT THIS TIME.
--- NOTE | 2022-09-27 15:14 | NUR ---
Pt moved to room 364, and daughter is bringing in his dog for a visit. Comfort cart ordered. Pt appears relaxed and peaceful. Appears to be resting comfortably.
--- NOTE | 2022-09-27 17:42 | NUR ---
SHIFT SUMMARY PATIENT DROWSY, FATIGUED, AND WEAK. ORIENTED, SPEAKING REQUIRES A LOT OF EFFORT. ABLE TO PROVIDE ONE-WORD ANSWERS AND NOD HEAD. COMFORT CARE. GENERALIZED PAIN AND SOB MANAGED WITH PRN FENTANYL AND ROXANOL ORDERS. PALLIATIVE CARE IS FOLLOWING. NC TO MOUTH AT 10L FOR COMFORT. NG TO LIS, SMALL AMOUNT OF YELLOW-GREEN OUTPUT. ORAL SUCTION WITHIN REACH OF PATIENT. HENRY'S DAUGHTER ATTENTIVE AT BEDSIDE.
--- NOTE | 2022-09-28 18:01 | NUR ---
PATIENT AT 0910 THIS AM WITH FAMILY AT BEDSIDE. DR SU AT BEDSIDE TO VERIFY TIME OF WITH THIS NURSE. DONATION LINE NOTIFIED AND PATIENT WILL BE AN EYE DONOR. WHEN PROCUREMENT COMPLETED PATIENT WILL BE RELEASED TO [facility].
== END 2022-09-28 09:10 | DRG 177 ==
LOC: ER 22:14 → MEDS 09-14 02:56 → ICUE 09-14 02:56 → MEDS 09-14 02:58 → PCU 09-18 10:23 → ICUE 09-19 03:32 → MEDS 09-27 14:15
PROVIDERS: Family Medicine; Internal Medicine; Internal Medicine Critical Care Medicine; Student in an Organized Health Care Education/Training Program; ADMIT Student in an Organized Health Care Education/Training Program
PROC: 5A0955A Assistance with Respiratory Ventilation, Greater than 96 Consecutive Hours, High Flow/Velocity Cannula (ICD-10-PCS; 2022-09-14)
PROC: 4A033R1 Measurement of Arterial Saturation, Peripheral, Percutaneous Approach (ICD-10-PCS; 2022-09-21)
PROC: 5A09457 Assistance with Respiratory Ventilation, 24-96 Consecutive Hours, Continuous Positive Airway Pressure (ICD-10-PCS; 2022-09-21)
PROC: 02HV33Z Insertion of Infusion Device into Superior Vena Cava, Percutaneous Approach (ICD-10-PCS; principal; 2022-09-22)
PROC: 0D9670Z Drainage of Stomach with Drainage Device, Via Natural or Artificial Opening (ICD-10-PCS; 2022-09-22)
PROC: 3E0G76Z Introduction of Nutritional Substance into Upper GI, Via Natural or Artificial Opening (ICD-10-PCS; 2022-09-23)
DX: J69.0 Pneumonitis due to inhalation of food and vomit (principal); J96.01 Acute respiratory failure with hypoxia; K31.1 Adult hypertrophic pyloric stenosis; C15.9 Malignant neoplasm of esophagus, unspecified; C78.6 Secondary malignant neoplasm of retroperitoneum and peritoneum; K92.2 Gastrointestinal hemorrhage, unspecified; C78.5 Secondary malignant neoplasm of large intestine and rectum; D84.9 Immunodeficiency, unspecified; I47.1 Supraventricular tachycardia; E87.3 Alkalosis; Z51.5 Encounter for palliative care; I25.10 Atherosclerotic heart disease of native coronary artery without angina pectoris; I73.9 Peripheral vascular disease, unspecified; F17.210 Nicotine dependence, cigarettes, uncomplicated; C44.92 Squamous cell carcinoma of skin, unspecified; R11.2 Nausea with vomiting, unspecified; T45.1X5A Adverse effect of antineoplastic and immunosuppressive drugs, initial encounter; E87.6 Hypokalemia; J43.9 Emphysema, unspecified; Z20.822 Contact with and (suspected) exposure to COVID-19; B95.7 Other staphylococcus as the cause of diseases classified elsewhere; I95.9 Hypotension, unspecified; Z90.49 Acquired absence of other specified parts of digestive tract; Z98.890 Other specified postprocedural states; Z85.118 Personal history of other malignant neoplasm of bronchus and lung; Z92.21 Personal history of antineoplastic chemotherapy; Z92.3 Personal history of irradiation; Z88.1 Allergy status to other antibiotic agents; Z79.52 Long term (current) use of systemic steroids; Z79.899 Other long term (current) drug therapy; Z79.02 Long term (current) use of antithrombotics/antiplatelets; I25.2 Old myocardial infarction; Z89.422 Acquired absence of other left toe(s); Z66 Do not resuscitate
CPT/HCPCS: 0202U; 36415; 36569; 36600; 51702; 51703; 71045; 71260; 74018; 74177; 80048; 80053; 81001; 82271; 82803; 82947; 83605; 83735; 83880; 84100; 84132; 84145; 84478; 85014; 85018; 85025; 85610; 87040; 87077; 87086; 87186; 87449; 93005; 93010; 93971; 94640; 94644; 94660; 94664; 94760; 94762; 96365; 96367; 96375; 99285-25; A9270; C1751; C9113; J0153; J0456; J0612; J0696; J1120; J1170; J1650; J1940; J1956; J2060; J2405; J2543; J2765; J2930; J3010; J3370; J3411; J3475; J3480; J7030; J7042; J7050; J7120; J7131; P9047; Q9967